=== PATIENT | male | born 1975 | race Caucasian/White ===

== ENCOUNTER 2021-10-01 13:41 | Emergency (ER) | payer OTHER, SELFPAY ==
[2021-10-01 14:13] VITALS: BP 116/71; PULSE 95; RESP 18; TEMP 36.6; O2SAT 98; BMI 18.6
--- NOTE | 2021-10-01 15:42 | CRLHL7_ITS ---
For Patients: As a result of the Cures Act, medical imaging exams and procedure reports are released immediately into your electronic medical record. You may view this report before your referring provider. If you have questions, please contact your health care provider. INDICATION: Fall off ladder 09/23/2021. On tailbone. Significant pain.. TECHNIQUE: CT pelvis without contrast. COMPARISON: None. FINDINGS: Bones: Alignment is normal. There is subtle irregularity along the anterior margin of the S3 vertebral body (4/80) common best viewed on the lateral images likely corresponding to a subtle oblique, but predominately transverse fracture through the S3 vertebral body, nondisplaced. Joints: Unremarkable. Soft tissues: Unremarkable. IMPRESSION: Suspected subtle nondisplaced fracture along the anterior margin of the S3 vertebral body.. Please note that all CT scans at this facility use dose modulation, iterative reconstruction, and/or weight-based dosing when appropriate to reduce radiation dose to as low as reasonably achievable. Dictated by Russ Melendez MD @ 10/01/2021 4:52:55 PM (Electronically Signed)
--- NOTE | 2021-10-01 15:43 | ED.GENADULT ---
HPI - General Adult General Time Seen by Provider: 15:44 Date Seen: 10/01/21 Chief complaint: Hip Injury/Pain Stated complaint: Pelvic injury Time Seen by Provider: 10/01/21 15:33 Source: patient History of Present Illness HPI narrative: Shayy is a 46-year-old male with no past medical history presents emerged department with lower back injury. Patient states he was at work last week on a Wednesday, he was leaning over with 2 hands on a cart with his feet planted, he fell backwards, still holding onto the cart landing on his buttocks. He denies any head injury or loss of consciousness, he denies any other injury, pain is lower lumbar and tailbone area, he denies any urinary or bowel incontinence or retention, he denies any weakness, tingling or numbness of his lower extremities, he has continued to work. Pain is worse with sitting, he has to roll to his side when he is laying or sitting to get up due to the pain. pain is constant, sometimes radiates down his bilateral hip area. No history of any back problems. He has been taking [id number] medications for pain, it has progressively gotten worse, no other concerns at this time. Related Data Allergies Allergy/AdvReac Type Severity Reaction Status Date / Time hydromorphone AdvReac Verified 10/01/21 14:24 Rifampin Allergy Intermediate Uncoded 10/01/21 14:24 Review of Systems Status of ROS: Reports: 10 or more systems reviewed and unremarkable except as noted in History and below Exam Narrative: Exam Narrative: General: No obvious distress, sitting comfortably on his side HEENT: Tympanic membranes within normal limits, extraocular muscles intact, oropharynx clear and moist, pupils equal round reactive to light, extraocular muscles intact Neck: Nontender to palpation, supple, full range of motion Lungs: Clear to auscultation bilaterally Heart: normal sinus rhythm S1-S2 Abdomen: Soft, nontender bowel sounds present Muscle skeletal: Tender to palpation in the lower lumbar L5-S1 and coccyx region, no step-offs or saddle anesthesia, Straight leg raise and crossover at 20? negative, +5 strength lower extremities bilaterally, +2 patellar reflexes bilaterally Neuro: The within normal limits, alert awake and oriented x3, no focal deficits Const: Vital Signs, click to edit/add: Vital Signs - 24 hr 10/01/21 14:13 Temperature 97.9 F Pulse Rate [Pulse Oximeter] 95 Respiratory Rate 18 Blood Pressure [[facility] Upper Arm] 116/71 Pulse Oximetry 98 Course Course Hospital Course: 3:30 p.m.: Vitals are stable, workup will include CT pelvis without IV contrast rule out fracture. No red flags on exam. Patient does not want anything for pain at this time. Differential diagnosis include, life-threatening cauda equina and epidural abscess. Other differential diagnosis include sprain, contusion, nerve root entrapment, radiculopathy, muscle spasm, urolithiasis, lumbar fracture, pyelonephritis as well as all etiologies. The patient denied saddle anesthesia, bowel or bladder incontinence or retention or any lower extremity weakness. Reevaluation(s) Reevaluation #1: CT pelvis without IV contrast showed a subtle nondisplaced fracture along the anterior margin of S3 vertebral body. Patient is feeling better after above care given, plan would be to discharge, written instructions given, he should follow up with a primary care provider over the next 7-10 days, return precautions given. Time: 17:12 Vital Signs Vital signs: Initial Vital Signs Temperature 97.9 F 10/01/21 14:13 Temperature Source Temporal Artery Scan 10/01/21 14:13 Pulse Rate 95 10/01/21 14:13 Pulse Rhythm 10/01/21 14:13 Respiratory Rate 18 10/01/21 14:13 Blood Pressure 116/71 10/01/21 14:13 Blood Pressure Mean 86 10/01/21 14:13 Blood Pressure Position Sitting 10/01/21 14:13 Pulse Oximetry 98 10/01/21 14:13 Oxygen Delivery Method 10/01/21 14:13 Vital Signs Temperature 97.9 F 10/01/21 14:13 Pulse Rate 95 10/01/21 14:13 Respiratory Rate 18 10/01/21 14:13 Blood Pressure 116/71 10/01/21 14:13 Pulse Oximetry 98 10/01/21 14:13 Temperature 97.9 F 10/01/21 14:13 Pulse Rate 95 10/01/21 14:13 Respiratory Rate 18 10/01/21 14:13 Blood Pressure 116/71 10/01/21 14:13 Pulse Oximetry 98 10/01/21 14:13 Discharge Plan Discharge Clinical Impression: Closed sacral fracture Patient Disposition: Home, Self-Care Condition: Improved Instructions: Sacral Fracture (ED) Additional Instructions: Continue with Tylenol and Motrin every 4-6 hours as needed for pain, can apply a cushion doughnut to help with support and pain control during sitting, to follow up with a primary care provider in [place] over the next 7-10 days, return precautions given. Activity Level: Activity as Tolerated Follow Up/Referrals: Gurvinder Lou MD [Referring] - Stand Alone Forms: [employer] Info Instructions
[2021-10-01 17:27] VITALS: BP 156/85; PULSE 88; RESP 16; O2SAT 98
== END 2021-10-01 17:28 | disposition home or self-care (01) ==
PROVIDERS: Emergency Provider Student in an Organized Health Care Education/Training Program
DX: S32.16XA Type 3 fracture of sacrum, initial encounter for closed fracture (principal); W18.30XA Fall on same level, unspecified, initial encounter
CPT/HCPCS: 72192; 99283; 99284

== ENCOUNTER 2021-11-30 11:35 | Emergency (ER) | payer OTHER, SELFPAY ==
[2021-11-30] VITALS (8 sets, daily range): BP systolic 140–173; BP diastolic 39–87; PULSE 98–111; TEMP 36.8; O2SAT 98–100; BMI 18.0
--- NOTE | 2021-11-30 12:07 | CRLHL7_ITS ---
For Patients: As a result of the Century Cures Act, medical imaging exams and procedure reports are released immediately into your electronic medical record. You may view this report before your referring provider. If you have questions, please contact your health care provider. Indication: Chest pain lymphoma Technique: Contrast CT chest Comparison: No comparison Findings: Normal caliber thoracic aorta. Heart size normal. No pericardial effusion. No mediastinal adenopathy. No effusion. No pericardial effusion. Minimal ground-glass opacity in the left lower lobe could represent area of pneumonitis. The lungs are otherwise clear No suspicious bony lesions are seen. Impression: 1. Minimal ground-glass opacity left lower lobe could represent area of pneumonitis. The lungs are otherwise clear. Please note that all CT scans at this facility use dose modulation, iterative reconstruction, and/or weight-based dosing when appropriate to reduce radiation dose to as low as reasonably achievable. Dictated by Nahomi Klein MD @ 11/30/2021 1:50:45 PM (Electronically Signed)
[2021-11-30 12:22] LABS: Lactate Sepsis w/Reflex* 1.5 mmol/L (0.5-1.9)
[2021-11-30] MEDS: 0.9 % SODIUM CHLORIDE 1000 ml 1,000 ML IV ×2 (12:30→13:35)
[2021-11-30 12:31] LABS: Glucose, Point-of-Care* 377 mg/dl (60-115)
[2021-11-30 12:32] LABS: Basophils Percent Auto 0.2 % (0.0-3.0); Eosinophils Percent Auto 0.1 % (0.0-7.0); Hematocrit 42.1 % (37.0-53.0); Hemoglobin* 14.3 gm/dL (13.5-17.5); Immature Granulocytes Abs Auto 0.06 K/uL (0.00-0.30); Lymphocytes Percent Auto 5.1 % (20-44); Mean Corpuscular HGB Conc 34 gm/dL (32-36); Mean Corpuscular Hemoglobin 29 pg (26-34); Mean Corpuscular Volume 86 fL (80-100); Monocytes Percent Auto 8.8 % (0.0-11.0); Neutrophils Percent Auto 85.3 % (42.0-72.0); Platelet Count* 199 K/uL (140-440); RDW Coefficient of Variation % 11.7 % (11.5-15.5); Red Blood Count 4.92 m/uL (4.30-5.90); White Blood Count* 11.75 K/uL (4.50-11.00)
[2021-11-30 12:34] LABS: Slide Review Reflex No
--- NOTE | 2021-11-30 12:38 | ED_ITS ---
HPI - General Adult General Chief complaint: Chest Pain Stated complaint: Shortness of breath fever vomiting Time Seen by Provider: 11/30/21 11:44 History of Present Illness HPI narrative: Ankush is a 46yo male patient with remote history of Burkitt's lymphoma, T[]DM (poorly controlled, not on medications), and poor adherence to medical recommendations due to limited access. He presents to the ED with complaints of chest pain that has been present for a few weeks. In addition, the patient has had a feeling of general malaise for months now. He reports on Wednesday evening the pain in his chest began to worsen. On he was in his usual state of poor health, but worsened overnight. By Wednesday, the patient reports severe symptoms including fever 102.5 T-max, shortness of breath, and nausea with vomiting. During the worst of the symptoms, the patient reports he was hallucinating, witnessed by his who is present at bedside. He was given a home COVID test x2, which were both negative. He has had no other treatments or interventions. His glucoses remain uncontrolled as he is not using any insulin. He denies significant cough, but states when he does cough he has severe left-sided chest pain. He denies personal history of cardiac disease, CAD, or previous MN. the pain radiates to his left shoulder and down his left arm. The pain is worsened with deep inspiration. The other symptoms, nausea vomiting, fever, and shortness of breath have somewhat subsided since their onset 4 days prior. He has used no treatments at home prior to arrival. Related Data Previous Rx's Medication Instructions Recorded azithromycin 500 mg tablet 500 mg PO DAILY 5 days #5 tabs 11/30/21 Allergies Allergy/AdvReac Type Severity Reaction Status Date / Time hydromorphone AdvReac Verified 10/01/21 14:24 Rifampin Allergy Intermediate Uncoded 10/01/21 14:24 Review of Systems Const: Reports: fever, chills, fatigue and malaise ENMT: Denies: throat pain, hoarseness or ear pain Cardio: Reports: chest pain, shortness of breath with exertion and shortness of breath when lying down; Denies: palpitations or swelling of feet/ankles Resp: Reports: shortness of breath and cough (occasional) GI: Reports: nausea and vomiting; Denies: abdominal pain, diarrhea or constipation Neuro: Reports: lack of coordination, dizziness and confusion (during the height of his fever, now resolved); Denies: headache, numbness in extremities or weakness in extremities Psych: Reports: visual hallucinations (now resolved) and auditory hallucinations (now resolved) Endo: Reports: fatigue PFSH PFS Medical History (Updated 11/30/21 @ 14:41 by Sabrina Ng DO) Lymphoma Surgical History (Updated 10/01/21 @ 17:26 by Chrissy Shah RN) History of arthroplasty of right shoulder Social History Smoking Status: Never smoker Do you use any of these nicotine containing products: Smokeless Tobacco Second hand tobacco smoke exposure: No How often do you have a drink containing alcohol: 2-3 times a week How many standard drinks containing alcohol do you have on a typical day: 1 or 2 How often do you have six or more drinks on one occasion: Never AUDIT-C Alcohol total score: 3 Non-prescribed substance use: denies use Exam Const: Vital Signs, click to edit/add: Vital Signs - 24 hr 11/30/21 11:45 11/30/21 11:45 11/30/21 12:00 Temperature 98.2 F Pulse Rate [Left P ulse Oximeter] 109 H 102 H 98 Blood Pressure [Ri ght Upper Arm] 173/39 H 173/39 H 146/84 H Pulse Oximetry 100 100 98 Oxygen Delivery Me thod Room Air Room Air Room Air 11/30/21 12:30 11/30/21 13:00 11/30/21 13:20 Temperature Pulse Rate [Left P ulse Oximeter] 105 H 102 H 108 H Blood Pressure [Ri ght Upper Arm] 144/78 H 150/85 H 164/83 H Pulse Oximetry 99 98 98 Oxygen Delivery Me thod Room Air Room Air Room Air 11/30/21 14:00 11/30/21 14:30 11/30/21 15:30 Temperature Pulse Rate [Left P ulse Oximeter] 101 H 99 111 H Blood Pressure [Ri ght Upper Arm] 140/79 H 147/75 H 159/87 H Pulse Oximetry 98 98 98 Oxygen Delivery Me thod Room Air Room Air Room Air Documenting provider has reviewed patient's vital signs: yes Common normals: no apparent distress, oriented x3 and alert General appearance: cooperative, ill appearing chronically and frail appearing; not in distress Nutritional appearance: thin Orientation/consciousness: Yes awake, Yes oriented to person, Yes oriented to place and Yes oriented to time HENMT: Common normals: normocephalic and head/scalp atraumatic Head and scalp: normocephalic and atraumatic Eye: Common normals: PERRL and EOMs intact bilaterally General eye: normal appearance of both eyes Pupil: PERRL Neck & C-Spine: Common normals: full ROM, no lymphadenopathy and supple Chest: Common normals: inspection of chest normal and palpation of chest normal Chest: tenderness other (left chest, not reproducible with palpation) Resp: Common normals: normal respiratory effort, no retractions, no use of accessory muscles and clear to auscultation bilaterally Effort & inspection: able to speak in complete sentences Auscultation: clear to auscultation bilaterally Cardio: Common normals: regular rate, regular rhythm, S1 normal heart sound, S2 normal heart sound, no gallops, no clicks, no murmurs and peripheral pulses 2+ throughout Rate: regular rate Rhythm: regular rhythm Heart sounds: S1 normal and S2 normal Peripheral pulses: pulses 2+ throughout GI: Common normals: Normal to inspection, nondistended, normoactive bowel sounds present, soft to palpation and non-tender Palpation: soft Back & Pelvis: Common normals: thoracic and lumbar spine normal to inspection General back: no erythema, no warmth, no ecchymosis and no tenderness Extremity: Common normals: normal to inspection, full ROM, no clubbing, cyanosis or edema and no calf tenderness Neuro: Edwin Coma Scale: document GCS findings Edwin coma scale eye opening: Spontaneous (4) Orla coma scale verbal response: Orientated (5) Edwin coma scale motor response: Obey commands (6) Orla coma scale total score: 15 Common normals: oriented x3 Sensorium/orientation: awake, alert, oriented to person, oriented to place and oriented to time Motor exam: strength 5/5 throughout Psych: Common normals: mental status grossly normal, thought process normal and speech normal Attitude: calm Activity/motor behavior: appropriate eye contact Speech: normal speech Thought process: normal thought process Thought content: normal thought content Attention/concentration: attention grossly intact Memory/cognition: memory grossly intact Insight: fair Judgement: fair Skin: Common normals: no rashes or lesions noted General skin exam: no rashes or lesions noted Course Course Hospital Course: Ankush presented to the emergency department with complaints of weeks of left- sided chest pain. The patient also reports he has had months of failing to thrive and general malaise. He presents today due to an acute worsening of symptoms for the last 4 days. During that time the patient had fever (T-max 102.5?), nausea and vomiting. In addition his left-sided chest pain worsened, and now is painful with deep inspiration. He has been noncompliant with his recommendations regarding his diabetes. He has taken no insulin for several months. He presents for further evaluation and workup. Imaging and labs are performed. EKG was performed and read by me as noted. The patient was given 15 mg of IV Toradol to assist with pain and discomfort in his left chest. He is also given 2 L of fluids due to elevated glucose as noted. Reevaluation(s) Reevaluation #1: Patient reports improvement with Toradol. He continues to feel weak, but he reports improvement in symptoms. Time: 13:50 Reevaluation #2: Patient continues to improve with results discussed as they have returned. Plan for recheck of glucose to ensure improvement prior to discharge. Time: 14:31 Vital Signs Vital signs: Initial Vital Signs Temperature 98.2 F 11/30/21 11:45 Temperature Source Temporal Artery Scan 11/30/21 11:45 Pulse Rate 109 H 11/30/21 11:45 Blood Pressure 173/39 H 11/30/21 11:45 Blood Pressure Mean 83 11/30/21 11:45 Blood Pressure Position Supine 11/30/21 11:45 Pulse Oximetry 100 11/30/21 11:45 Oxygen Delivery Method 11/30/21 11:45 Vital Signs Temperature 98.2 F 11/30/21 11:45 Pulse Rate 109 H 11/30/21 11:45 Blood Pressure 173/39 H 11/30/21 11:45 Pulse Oximetry 100 11/30/21 11:45 Oxygen Delivery Method 11/30/21 11:45 Temperature 98.2 F 11/30/21 11:45 Pulse Rate 111 H 11/30/21 15:30 Blood Pressure 159/87 H 11/30/21 15:30 Pulse Oximetry 98 11/30/21 15:30 Oxygen Delivery Method 11/30/21 15:30 Medical Decision Making Lab Data Labs: Lab Results 11/30/21 11/30/21 11/30/21 Range/Units 11:54 12:10 12:10 WBC 11.75 H (4.50-11.00) K/uL RBC 4.92 (4.30-5.90) m/uL Hgb 14.3 (13.5-17.5) gm/dL Hct 42.1 (37.0-53.0) % MCV 86 (80-100) fL MCH 29 (26-34) pg MCHC 34 (32-36) gm/dL RDW Coeff of Severiano 11.7 (11.5-15.5) % Plt Count 199 (140-440) K/uL Neut % (Auto) 85.3 H (42.0-72.0) % Lymph % (Auto) 5.1 L (20-44) % [place] % (Auto) 8.8 (0.0-11.0) % Eos % (Auto) 0.1 (0.0-7.0) % Baso % (Auto) 0.2 (0.0-3.0) % Neut # (Auto) 10.00 H (1.7-7.0) K/uL Lymph # (Auto) 0.60 L (0.90-2.90) K/uL [place] # (Auto) 1.00 H (0.00-0.90) K/UL Eos # (Auto) 0.00 (0.00-0.50) K/uL Baso # (Auto) 0.00 (0.00-0.30) K/uL Abs Immat Gran (auto) 0.06 (0.00-0.30) K/uL Sodium 132 L (135-149) mmol/L Potassium 4.3 (3.6-5.1) mmol/L Chloride 93 L (96-114) mmol/L Carbon Dioxide 22 (20-32) mmol/L BUN 19 (5-24) mg/dL Creatinine 1.1 (0.5-1.5) mg/dL Estimated Creat Clear 76.17 Estimated GFR 84 ml/min Glucose 377 H* (60-115) mg/dL Venous Lactic Acid (Serial Order) Calcium 8.9 (8.4-10.6) mg/dL Total Bilirubin 0.8 (0.1-1.5) mg/dL AST 30 (12-35) U/L ALT 27 (4-50) U/L Alkaline Phosphatase 159 H (40-150) U/L Total Creatine Kinase 56 (54-186) U/L CK/CKMB % Calc Troponin I < 0.01 L (0.01-0.04) ng/mL Total Protein 8.3 (6.0-8.3) g/dL Albumin 4.6 (3.3-5.0) g/dL SARS-CoV-2 (PCR) Negative SARS-CoV-2 (Negative) Influenza Type A (PCR) Negative PCR FLU A (Negative) Influenza Type B (PCR) Negative PCR FLU B (Negative) POC Glucose (60-115) mg/dl 11/30/21 11/30/21 11/30/21 Range/Units 12:10 12:10 12:10 WBC (4.50-11.00) K/uL RBC (4.30-5.90) m/uL Hgb (13.5-17.5) gm/dL Hct (37.0-53.0) % MCV (80-100) fL MCH (26-34) pg MCHC (32-36) gm/dL RDW Coeff of Severiano (11.5-15.5) % Plt Count (140-440) K/uL Neut % (Auto) (42.0-72.0) % Lymph % (Auto) (20-44) % [place] % (Auto) (0.0-11.0) % Eos % (Auto) (0.0-7.0) % Baso % (Auto) (0.0-3.0) % Neut # (Auto) (1.7-7.0) K/uL Lymph # (Auto) (0.90-2.90) K/uL [place] # (Auto) (0.00-0.90) K/UL Eos # (Auto) (0.00-0.50) K/uL Baso # (Auto) (0.00-0.30) K/uL Abs Immat Gran (auto) (0.00-0.30) K/uL Sodium (135-149) mmol/L Potassium (3.6-5.1) mmol/L Chloride (96-114) mmol/L Carbon Dioxide (20-32) mmol/L BUN (5-24) mg/dL Creatinine (0.5-1.5) mg/dL Estimated Creat Clear Estimated GFR ml/min Glucose (60-115) mg/dL Venous Lactic Acid (Serial Order) Calcium (8.4-10.6) mg/dL Total Bilirubin (0.1-1.5) mg/dL AST (12-35) U/L ALT (4-50) U/L Alkaline Phosphatase (40-150) U/L Total Creatine Kinase (54-186) U/L CK/CKMB % Calc Cancelled Troponin I (0.01-0.04) ng/mL Total Protein (6.0-8.3) g/dL Albumin (3.3-5.0) g/dL SARS-CoV-2 (PCR) (Negative) Influenza Type A (PCR) (Negative) Influenza Type B (PCR) (Negative) POC Glucose 377 H* (60-115) mg/dl Imaging Data CT scan - chest: Attestation: I have reviewed the pertinent imaging results. Radiologist's impression: Impression: 1. Minimal ground-glass opacity left lower lobe could represent area of pneumonitis. The lungs are otherwise clear. Discharge Plan Discharge Clinical Impression: Pneumonitis Type 1 diabetes mellitus, uncontrolled Qualifiers: Glycemic state: with hyperglycemia Qualified Code(s): E10.65 - Type 1 diabetes mellitus with hyperglycemia Patient Disposition: Home, Self-Care Condition: Improved Instructions: Managing Diabetes During Sick Days (ED) Additional Instructions: Thank you for choosing [facility]. We plan to treat with antibiotics to cover for the pneumonitis noted on CT. You should aggressively treat symptoms with: rest, increased fluids, and Ibuprofen and Tylenol as needed. You should eat and drink to ensure adequate intake. Consider restarting your insulin, as poor control of your diabetes will worsen your symptoms and chronic diseases. The patient is asked to return if developing respiratory or GI distress, inability to eat or drink, decreased urine output, or other new/worsening symptoms develop. Additional discussion regarding the course of the illness, as well as helpful treatments, including use of a vaporizer/humidifier, steamed bathroom, or cool outdoor air. Arrange follow up visit if worsening or no improvement in symptoms in 1-2 weeks. The patient is asked to return if develops warning signs including fever >100.4 not responsive to medication, respiratory distress, lethargy, failure to hydrate with PO intake, or decreased urine output. Your care today was on an emergency basis and is not intended to be a substitute for on-going care with your primary physician. I recommend calling primary care for follow-up in the next 5-7 days for follow-up as needed and to review any labs, testing, or imaging you have had in the Emergency Department. If new or worsening symptoms develop or you have any concerns in the meantime, please call your primary care clinic or return to the ER for re-evaluation. Activity Level: Activity as Tolerated Discharge Diet: Diabetic Diet Detail: Push fluids while you are feeling ill to ensure you are getting a minimum of 2.4L in a day. Prescriptions: New azithromycin 500 mg tablet 500 mg PO DAILY 5 Days Qty: 5 0RF Follow Up/Referrals: Provider,Not a Local [Primary Care Provider] - Stand Alone Forms: [employer] Info Instructions
[2021-11-30 12:44] LABS: PCR FLU A Negative PCR FLU A (Negative); PCR FLU B Negative PCR FLU B (Negative)
[2021-11-30 12:45] LABS: Albumin* 4.6 g/dL (3.3-5.0); Chloride* 93 mmol/L (96-114); Potassium* 4.3 mmol/L (3.6-5.1); Sodium* 132 mmol/L (135-149)
[2021-11-30 12:47] LABS: Bilirubin Total* 0.8 mg/dL (0.1-1.5); Creatinine* 1.1 mg/dL (0.5-1.5); Est. Creatinine Clearance* 76.17; Estimated Glomerular Filt Rate 84 ml/min
[2021-11-30 12:48] LABS: Alanine Aminotransferase* 27 U/L (4-50); Alkaline Phosphatase* 159 U/L (40-150); Aspartate Amino Transferase* 30 U/L (12-35); Blood Urea Nitrogen* 19 mg/dL (5-24); Carbon Dioxide* 22 mmol/L (20-32); Creatine Kinase* 56 U/L (54-186); Total Protein* 8.3 g/dL (6.0-8.3)
[2021-11-30 12:49] LABS: Calcium* 8.9 mg/dL (8.4-10.6)
[2021-11-30 12:50] LABS: SARS PCR* Negative SARS-CoV-2 (Negative)
[2021-11-30 12:59] LABS: Glucose* 377 mg/dL (60-115)
[2021-11-30 13:00] LABS: Troponin I* < 0.01 ng/mL (0.01-0.04)
[2021-11-30] MEDS: KETOROLAC 15 MG/ML inj IVP (13:15)
[2021-11-30 14:17] LABS: Lactate Sepsis 2 Hour 0.7 mmol/L (0.5-1.9)
--- NOTE | 2021-11-30 15:19 | ED.NURSE ---
BG rechecked, now 271. notified.
== END 2021-11-30 15:40 | disposition home or self-care (01) ==
PROVIDERS: Emergency Provider Family Medicine
DX: J18.9 Pneumonia, unspecified organism (principal); E10.65 Type 1 diabetes mellitus with hyperglycemia
CPT/HCPCS: 36415; 71260; 80053; 82550; 82553; 82947; 84484; 85025; 87631; 93005; 96374; 99284; 99285; J1885; J7030; Q9967

== ENCOUNTER 2021-12-08 09:33 | Inpatient (IN) | payer OTHER, SELFPAY ==
[2021-12-08] VITALS (11 sets, daily range): BP systolic 122–157; BP diastolic 66–88; PULSE 82–111; RESP 14–20; TEMP 36.8–37.4; O2SAT 92–99; BMI 18.0; BMI 18.2
--- NOTE | 2021-12-08 10:16 | CRLHL7_ITS ---
For Patients: As a result of the 21st Century Cures Act, medical imaging exams and procedure reports are released immediately into your electronic medical record. You may view this report before your referring provider. If you have questions, please contact your health care provider. INDICATION: LEFT UPPER CHEST PAIN AND SWELLING RECET PNEUOMIA HX OF LYMPOMA COMPARISON: 11/30/2021 TECHNIQUE: CT volumetric acquisition was performed of the thorax during intravenous infusion of 95 cc Isovue 370 nonionic intravenous contrast. Please note that all CT scans at this facility use dose modulation, iterative reconstruction, and/or weight-based dosing when appropriate to reduce radiation dose to as low as reasonably achievable. FINDINGS: There is no pulmonary embolism. No aortic dissection. There is soft tissue swelling involving the left anterior chest wall deep to the pectoralis musculature with associated subcutaneous gas. Underline pleural thickening noted at the anterior left hemithorax along with thickening of the anterior interlobular septa. There may be a subtle nondisplaced fracture of the left anterior 4th rib. No pneumothorax. Trace left pleural effusion. No pericardial effusion. Interval development focal opacity within the right lower lobe measuring 2.9 cm. Other focal airspace densities within the left lower lobe measuring up to 1 cm. Smaller focal ground-glass densities elsewhere within the left lower lobe and right lower lobe. No intrathoracic adenopathy. Visualized thyroid normal. Thoracic vertebral bodies are normal. Upper abdomen unremarkable. IMPRESSION: No evidence of pulmonary thromboembolism. Left anterior subcutaneous soft tissue swelling, subpectoral fluid and subcutaneous emphysema. Adjacent left anterior hemithorax pleural thickening and thickening of the interlobular septa. Possible adjacent nondisplaced fracture of the left anterior 4th rib. These findings may be secondary to trauma, infection or malignancy. New patchy areas of ground-glass opacification bilaterally consistent with infiltrates. More consolidative area within the right lower lobe. Please note that all CT scans at this facility use dose modulation, iterative reconstruction, and/or weight-based dosing when appropriate to reduce radiation dose to as low as reasonably achievable. Dictated by Jose Philip MD @ 12/08/2021 11:36:38 AM (Electronically Signed)
[2021-12-08] MEDS: 0.9 % SODIUM CHLORIDE 1000 ml 1,000 ML IV (10:46)
[2021-12-08] MEDS: KETOROLAC 15 MG/ML inj IVP (10:47)
[2021-12-08 10:54] LABS: Basophils Percent Auto 0.1 % (0.0-3.0); Eosinophils Percent Auto 0.3 % (0.0-7.0); Hemoglobin* 11.8 gm/dL (13.5-17.5); Immature Granulocytes Abs Auto 0.08 K/uL (0.00-0.30); Lymphocytes Percent Auto 6.8 % (20-44); Mean Corpuscular HGB Conc 33 gm/dL (32-36); Mean Corpuscular Hemoglobin 29 pg (26-34); Mean Corpuscular Volume 89 fL (80-100); Monocytes Percent Auto 6.3 % (0.0-11.0); Neutrophils Percent Auto 85.9 % (42.0-72.0); Platelet Count* 489 K/uL (140-440); RDW Coefficient of Variation % 12.2 % (11.5-15.5); Red Blood Count 4.05 m/uL (4.30-5.90); White Blood Count* 14.33 K/uL (4.50-11.00)
[2021-12-08 10:55] LABS: Slide Review Reflex No
[2021-12-08 10:57] LABS: Lactate Sepsis w/Reflex* 0.9 mmol/L (0.5-1.9)
--- NOTE | 2021-12-08 11:00 | PC.NURSE ---
pt in imaging, lab called for second BC, they will come in 15min after CT
--- NOTE | 2021-12-08 11:04 | ED_ITS ---
HPI - General Adult General Chief complaint: Chest Pain Stated complaint: Pneumonitis getting worse Time Seen by Provider: 12/08/21 10:10 History of Present Illness HPI narrative: 46-year-old man presenting to the emergency department with complaint of increasing left upper chest pain. A searing pain actually goes straight through to his back as well. Underlying history of poorly controlled diabetes and Burkitt's lymphoma (history of surgery to remove large mass of the abdomen coin ciding with appendicitis and subsequent chemotherapy now in remission since about 2007), diagnosed about a week ago through this department with suspected pneumonitis in the left lower lung on CT imaging. White count was little bit elevated at that time. Three days ago has noted some swelling in the left upper chest which has rapidly expanded. He has not noted inflammation here. Pain seems to stop at the midsternum. It is pleuritic in nature. Any movement hurts particularly raising his left arm, twisting. He has not had any fevers. It does not sound as though he is really short of breath. Generally poor health. 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 Subsequently then when I inquire, denies history of pneumothorax. Was seen here after a fall in the end of September and diagnosed with a nondisplaced S3 fracture on pelvic CT. Abdomen was not fully visualized at that time. He initially states that he did not have pain in his chest at that time. Though with later questioning it appears that there has been some discomfort to some degree for many weeks in this left upper chest/sternal area. Has continued to lose weight over the last few years perhaps as much as 100 lb. Eats anything he wants does not really gain weight to his 's frustration apparently. Often just does not feel like eating. Does have some Lantus available in the fridge but does not really use it and has not been able to afford regular treatment regardless. Otherwise only takes ibuprofen. Does think that it would be time to return to the administrative services assistant for a clearer diagnosis he thinks of his diabetes. Related Data Home Medications Medication Instructions Recorded Confirmed melatonin 10 mg capsule 10 mg PO HS PRN 12/08/21 12/08/21 Previous Rx's Medication Instructions Recorded acetaminophen 500 mg tablet 1,000 mg PO TID PRN #100 tabs 12/10/21 (Acetaminophen Extra Strength) amoxicillin 875 mg-potassium 1 tab PO BID #10 tabs 12/10/21 clavulanate 125 mg tablet ibuprofen 200 mg tablet (Advil) 600 mg PO Q6H PRN #100 tabs 12/10/21 insulin aspart U-100 100 unit/mL 6 unit (0.06 mL) subcut TIDWM #15 12/10/21 (3 mL) subcutaneous pen (Novolog mL Flexpen U-100 Insulin aspart) insulin glargine 100 unit/mL (3 15 unit (0.15 mL) subcut QPM #15 mL 12/10/21 mL) subcutaneous pen (Lantus Solostar U-100 Insulin) oxycodone 5 mg capsule 5 mg PO Q6H PRN pain #20 caps 12/10/21 Allergies Allergy/AdvReac Type Severity Reaction Status Date / Time rifampin Allergy Intermediate Verified 12/08/21 17:39 hydromorphone AdvReac Verified 10/01/21 14:24 Review of Systems Status of ROS: Reports: 10 or more systems reviewed and unremarkable except as noted in History and below [facility] Medical History (Updated 12/10/21 @ 16:58 by Satya Liao MD) Burkitt's lymphoma Chewing tobacco nicotine dependence Elevated liver enzymes Methicillin susceptible Staphylococcus aureus septicemia Type 1 diabetes mellitus Surgical History History of appendectomy History of arthroscopy of shoulder History of laparotomy History of placement of ear tubes Family History Father Diabetes Social History Narrative: Lives with his , Li. They have 1 son together. Each have a child from a previous relationship. 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 He chews tobacco. He drinks socially 2 to 3 times a week. 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 Highest level of school completed/degree received: decline to answer Smoking Status: Never smoker Do you use any of these nicotine containing products: Smokeless Tobacco Nicotine containing products detail: Chews tobacco daily. Second hand tobacco smoke exposure: No How often do you have a drink containing alcohol: 2-3 times a week How many standard drinks containing alcohol do you have on a typical day: 1 or 2 How often do you have six or more drinks on one occasion: Never AUDIT-C Alcohol total score: 3 Non-prescribed substance use: denies use service: No Exam Narrative: Exam Narrative: Rather thin, nearly cachectic. Of good energy. I do not smell ketones. Dentition in poor repair. I do not see inflammatory changes. Sticky oropharyngeal mucosa Speaking easily. Breathing easily actually not splinting. Lungs appear to be clear. Back quite thin, he is claims in pain when I palpate the left upper back, periscapular area. On the anterior chest wall there is a moderate swelling over the left upper chest. Quite firm. I do not feel well demarcated edges. No inflammatory changes. Very tender to palpation. Abdomen is flat soft and nontender. Lower extremities are quite thin, no edema. Well perfused peripherally. Skin without apparent rash Const: Vital Signs, click to edit/add: Vital Signs - 24 hr 12/08/21 09:50 12/08/21 12:10 12/08/21 12:30 Temperature 98.3 F Pulse Rate [Pulse Oximeter] 105 H 85 82 Respiratory Rate 16 18 15 Blood Pressure [Ri ght Upper Arm] 122/66 157/86 H 149/83 H Pulse Oximetry 98 98 98 Oxygen Delivery Me thod Room Air Room Air Room Air 12/08/21 13:00 12/08/21 13:30 12/08/21 14:00 Temperature Pulse Rate [Pulse Oximeter] 85 87 87 Respiratory Rate 18 14 14 Blood Pressure [Ri ght Upper Arm] 140/86 H 141/79 H 146/80 H Pulse Oximetry 99 99 99 Oxygen Delivery Me thod Room Air Room Air Room Air Documenting provider has reviewed patient's vital signs: yes Course Course Hospital Course: Patient admitted to the hospital with ongoing coughing, left chest pain, poorly controlled diabetes. 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 He had received a Zithromax in the week prior to this admission. Here he was continued on Pipracil and tazobactam. He had clinical improvement with no fever or hypoxia. Cough is improved. He is found to have a left 4th rib fracture with associated hematoma and small subcutaneous emphysema. He was resumed on his insulin and blood sugars improved though I have not yet normalized. Reevaluation(s) Reevaluation #1: Initiated on normal saline fluid resuscitation and given ketorolac as he thinks that that worked well before. Consultations Consultation #1: I did speak with our general surgeon on-call given results in chest CT. Nothing concerning specifically about the fracture. Expressed further concern regarding uncontrolled diabetes and effects from that and other abnormal lab values. Consultation #2: Discussed treatment and care with our hospitalist anticipating admission. Thankfully accepting. Vital Signs Vital signs: Initial Vital Signs Temperature 98.3 F 12/08/21 09:50 Temperature Source Temporal Artery Scan 12/08/21 09:50 Pulse Rate 105 H 12/08/21 09:50 Pulse Rhythm 12/08/21 09:50 Respiratory Rate 16 12/08/21 09:50 Blood Pressure 122/66 12/08/21 09:50 Blood Pressure Mean 84 12/08/21 09:50 Blood Pressure Position Sitting 12/08/21 09:50 Pulse Oximetry 98 12/08/21 09:50 Oxygen Delivery Method 12/08/21 09:50 Vital Signs Temperature 98.3 F 12/08/21 09:50 Pulse Rate 105 H 12/08/21 09:50 Respiratory Rate 16 12/08/21 09:50 Blood Pressure 122/66 12/08/21 09:50 Pulse Oximetry 98 12/08/21 09:50 Oxygen Delivery Method 12/08/21 09:50 Temperature 97.9 F 12/10/21 11:00 Pulse Rate 83 12/10/21 11:00 Respiratory Rate 20 12/10/21 11:00 Blood Pressure 132/77 12/10/21 11:00 Pulse Oximetry 98 12/10/21 11:00 Oxygen Delivery Method 12/10/21 11:00 Medical Decision Making MDM Narrative Medical decision making narrative: Complicated constellation of issues here. Question of pathologic fracture and FX of uncontrolled blood sugars. I do not perceive Mr. Smith to be in DKA. Bicarb 24. Further labs are pending. However will be given 10 units of regular insulin. Has received 2 L normal saline. Sepsis? He is not tachycardic on re- evaluation. IMPRESSION: No evidence of pulmonary thromboembolism. Left anterior subcutaneous soft tissue swelling, subpectoral fluid and subcutaneous emphysema. Adjacent left anterior hemithorax pleural thickening and thickening of the interlobular septa. Possible adjacent nondisplaced fracture of the left anterior 4th rib. These findings may be secondary to trauma, infection or malignancy. New patchy areas of ground-glass opacification bilaterally consistent with infiltrates. More consolidative area within the right lower lobe. Have further imaged the abdomen with residual contrast and looks to be unremarkable. Given challenges with diabetic management, apparently worsening pneumonia, I do think admission would help here. He has been vitally well during time in the emergency department. Is given Rocephin. Medical Records Medical records reviewed: Yes I reviewed the patient's medical records Lab Data Lab results reviewed: Yes I reviewed the patient's lab results Labs: Lab Results 12/08/21 12/08/21 12/08/21 Range/Units 10:17 10:22 10:40 WBC 14.33 H (4.50-11.00) K/uL RBC 4.05 L (4.30-5.90) m/uL Hgb 11.8 L (13.5-17.5) gm/dL Hct 36.0 L (37.0-53.0) % MCV 89 (80-100) fL MCH 29 (26-34) pg MCHC 33 (32-36) gm/dL RDW Coeff of Severiano 12.2 (11.5-15.5) % Plt Count 489 H (140-440) K/uL Neut % (Auto) 85.9 H (42.0-72.0) % Lymph % (Auto) 6.8 L (20-44) % Woodson % (Auto) 6.3 (0.0-11.0) % Eos % (Auto) 0.3 (0.0-7.0) % Baso % (Auto) 0.1 (0.0-3.0) % Neut # (Auto) 12.30 H (1.7-7.0) K/uL Lymph # (Auto) 1.00 (0.90-2.90) K/uL Woodson # (Auto) 0.90 (0.00-0.90) K/UL Eos # (Auto) 0.00 (0.00-0.50) K/uL Baso # (Auto) 0.00 (0.00-0.30) K/uL Abs Immat Gran (auto) 0.08 (0.00-0.30) K/uL D-Dimer Quant (PE/DVT) (0.00-0.50) ug/ml VBG pH (7.32-7.43) VBG pCO2 (40-50) mmHG VBG pO2 (25-47) mmHG VBG HCO3 (21-28) mmol/L Sodium (135-149) mmol/L Potassium (3.6-5.1) mmol/L Chloride (96-114) mmol/L Carbon Dioxide (20-32) mmol/L BUN (5-24) mg/dL Creatinine (0.5-1.5) mg/dL Estimated Creat Clear Estimated GFR ml/min Glucose (60-115) mg/dL Hemoglobin A1c (0-5.6) % Venous Lactic Acid (Serial Order) Calcium (8.4-10.6) mg/dL Total Bilirubin (0.1-1.5) mg/dL Direct Bilirubin (0.0-0.5) mg/dL AST (12-35) U/L ALT (4-50) U/L Alkaline Phosphatase (40-150) U/L Troponin I (0.01-0.04) ng/mL C-Reactive Protein (0.5-1.0) mg/dL NT-Pro-B Natriuret Pep (0-125) PG/mL Total Protein (6.0-8.3) g/dL Albumin (3.3-5.0) g/dL Procalcitonin (<0.50) ng/mL SARS-CoV-2 (PCR) Negative SARS-CoV-2 (Negative) 12/08/21 12/08/21 12/08/21 Range/Units 10:40 10:40 10:40 WBC (4.50-11.00) K/uL RBC (4.30-5.90) m/uL Hgb (13.5-17.5) gm/dL Hct (37.0-53.0) % MCV (80-100) fL MCH (26-34) pg MCHC (32-36) gm/dL RDW Coeff of Severiano (11.5-15.5) % Plt Count (140-440) K/uL Neut % (Auto) (42.0-72.0) % Lymph % (Auto) (20-44) % Woodson % (Auto) (0.0-11.0) % Eos % (Auto) (0.0-7.0) % Baso % (Auto) (0.0-3.0) % Neut # (Auto) (1.7-7.0) K/uL Lymph # (Auto) (0.90-2.90) K/uL Woodson # (Auto) (0.00-0.90) K/UL Eos # (Auto) (0.00-0.50) K/uL Baso # (Auto) (0.00-0.30) K/uL Abs Immat Gran (auto) (0.00-0.30) K/uL D-Dimer Quant (PE/DVT) 2.84 H (0.00-0.50) ug/ml VBG pH 7.376 (7.32-7.43) VBG pCO2 47 (40-50) mmHG VBG pO2 23.2 L (25-47) mmHG VBG HCO3 27 (21-28) mmol/L Sodium 133 L (135-149) mmol/L Potassium 5.3 H (3.6-5.1) mmol/L Chloride 95 L (96-114) mmol/L Carbon Dioxide 24 (20-32) mmol/L BUN 20 (5-24) mg/dL Creatinine 1.1 (0.5-1.5) mg/dL Estimated Creat Clear 76.17 Estimated GFR 84 ml/min Glucose 463 H* (60-115) mg/dL Hemoglobin A1c (0-5.6) % Venous Lactic Acid (Serial Order) Calcium 9.3 (8.4-10.6) mg/dL Total Bilirubin 0.8 (0.1-1.5) mg/dL Direct Bilirubin 0.7 H (0.0-0.5) mg/dL AST 172 H (12-35) U/L ALT 154 H (4-50) U/L Alkaline Phosphatase 771 H (40-150) U/L Troponin I < 0.01 L (0.01-0.04) ng/mL C-Reactive Protein 8.6 H (0.5-1.0) mg/dL NT-Pro-B Natriuret Pep 392 H (0-125) PG/mL Total Protein 7.7 (6.0-8.3) g/dL Albumin 3.7 (3.3-5.0) g/dL Procalcitonin 0.37 (<0.50) ng/mL SARS-CoV-2 (PCR) (Negative) 12/08/21 Range/Units 10:40 WBC (4.50-11.00) K/uL RBC (4.30-5.90) m/uL Hgb (13.5-17.5) gm/dL Hct (37.0-53.0) % MCV (80-100) fL MCH (26-34) pg MCHC (32-36) gm/dL RDW Coeff of Severiano (11.5-15.5) % Plt Count (140-440) K/uL Neut % (Auto) (42.0-72.0) % Lymph % (Auto) (20-44) % Woodson % (Auto) (0.0-11.0) % Eos % (Auto) (0.0-7.0) % Baso % (Auto) (0.0-3.0) % Neut # (Auto) (1.7-7.0) K/uL Lymph # (Auto) (0.90-2.90) K/uL Woodson # (Auto) (0.00-0.90) K/UL Eos # (Auto) (0.00-0.50) K/uL Baso # (Auto) (0.00-0.30) K/uL Abs Immat Gran (auto) (0.00-0.30) K/uL D-Dimer Quant (PE/DVT) (0.00-0.50) ug/ml VBG pH (7.32-7.43) VBG pCO2 (40-50) mmHG VBG pO2 (25-47) mmHG VBG HCO3 (21-28) mmol/L Sodium (135-149) mmol/L Potassium (3.6-5.1) mmol/L Chloride (96-114) mmol/L Carbon Dioxide (20-32) mmol/L BUN (5-24) mg/dL Creatinine (0.5-1.5) mg/dL Estimated Creat Clear Estimated GFR ml/min Glucose (60-115) mg/dL Hemoglobin A1c 12.01 H (0-5.6) % Venous Lactic Acid (Serial Order) Calcium (8.4-10.6) mg/dL Total Bilirubin (0.1-1.5) mg/dL Direct Bilirubin (0.0-0.5) mg/dL AST (12-35) U/L ALT (4-50) U/L Alkaline Phosphatase (40-150) U/L Troponin I (0.01-0.04) ng/mL C-Reactive Protein (0.5-1.0) mg/dL NT-Pro-B Natriuret Pep (0-125) PG/mL Total Protein (6.0-8.3) g/dL Albumin (3.3-5.0) g/dL Procalcitonin (<0.50) ng/mL SARS-CoV-2 (PCR) (Negative) Discharge Plan Discharge Clinical Impression: Type 1 diabetes mellitus, uncontrolled, Pneumonia Patient Disposition: Admitted As Inpatient Condition: Improved Activity Level: Activity as Tolerated Discharge Diet: Diabetic
[2021-12-08 11:14] LABS: Albumin* 3.7 g/dL (3.3-5.0); Chloride* 95 mmol/L (96-114); Potassium* 5.3 mmol/L (3.6-5.1); Sodium* 133 mmol/L (135-149)
[2021-12-08 11:16] LABS: Creatinine* 1.1 mg/dL (0.5-1.5); Est. Creatinine Clearance* 76.17; Estimated Glomerular Filt Rate 84 ml/min
[2021-12-08 11:17] LABS: Alanine Aminotransferase* 154 U/L (4-50); Alkaline Phosphatase* 771 U/L (40-150); Aspartate Amino Transferase* 172 U/L (12-35); Bilirubin Direct* 0.7 mg/dL (0.0-0.5); Bilirubin Total* 0.8 mg/dL (0.1-1.5); Blood Urea Nitrogen* 20 mg/dL (5-24); Calcium* 9.3 mg/dL (8.4-10.6); Carbon Dioxide* 24 mmol/L (20-32); Total Protein* 7.7 g/dL (6.0-8.3)
[2021-12-08 11:18] LABS: D Dimer Quantitative* 2.84 ug/ml (0.00-0.50)
[2021-12-08 11:20] LABS: C Reactive Protein* 8.6 mg/dL (0.5-1.0)
[2021-12-08 11:26] LABS: NT Pro B Type NatriureticPept* 392 PG/mL (0-125)
[2021-12-08 11:35] LABS: Glucose* 463 mg/dL (60-115); Troponin I* < 0.01 ng/mL (0.01-0.04)
[2021-12-08 12:03] LABS: SARS PCR* Negative SARS-CoV-2 (Negative)
--- NOTE | 2021-12-08 13:50 | CRLHL7_ITS ---
For Patients: As a result of the Cures Act, medical imaging exams and procedure reports are released immediately into your electronic medical record. You may view this report before your referring provider. If you have questions, please contact your health care provider. INDICATION: h/o Nadya lymphoma, high transaminases and alk phos TECHNIQUE: CT abdomen and pelvis without contrast. Coronal and sagittal reformats were generated. COMPARISON: CT of the chest from 12/08/2021 and 11/30/2021. FINDINGS: Lower chest: Unremarkable. Liver: Unremarkable. Gallbladder and bile ducts: Unremarkable. No stones or inflammation. No biliary dilation. Spleen: Unremarkable. Pancreas: Unremarkable. Adrenal glands: Unremarkable. No nodules. Kidneys and Ureters: Contrast within the renal collecting systems and ureters from recent contrast enhanced chest CT. Lymph Nodes and Retroperitoneum: Unremarkable. Vasculature: Vascular calcifications. GI tract: Unremarkable. Normal in caliber. An area of high attenuation adjacent to the cecum is probably from prior appendectomy. Peritoneum/Abdominal Wall: Unremarkable. No mass or infiltration. No free air or free fluid. Pelvic Viscera: Unremarkable. Bladder: Well distended with high density contrast material. No wall thickening. Bones: Unremarkable for age. IMPRESSION: No significant CT abnormality in the abdomen or pelvis or findings to explain the cause of the patient`s symptoms. Please note that all CT scans at this facility use dose modulation, iterative reconstruction, and/or weight-based dosing when appropriate to reduce radiation dose to as low as reasonably achievable. Dictated by Lambert Bowser MD @ 12/08/2021 3:00:27 PM (Electronically Signed)
[2021-12-08] MEDS: cefTRIAXone 1 GM in 0.9 % SODIUM CHLORIDE Mini-bag 100 ML IVPB (14:05)
--- NOTE | 2021-12-08 14:38 | W.PC.EDHO ---
Primary Language: Preferred Language: Orientation Status: [x] Alert & Oriented [] Slight Confusion [] Known Dx Dementia Transfers By: [x] Assist of 1 [] Assist of 2 [] Lift Active Medications Discontinued Medications Generic Name Dose Route Start Last Admin Trade Name Frandy PRN Reason Stop Dose Admin Sodium Chloride 1,000 mls @ 1,000 mls/hr 12/08/21 10:16 12/08/21 10:46 0.9 % Sodium Chloride 1000 Ml IV 12/08/21 11:15 1,000 mls/hr .Q1H ONE Administration Insulin Human Regular 10 unit 12/08/21 13:52 12/08/21 14:02 Insulin Regular 100 Unit/Ml Inj IVP 12/08/21 13:53 10 unit ONCE ONE Administration Ketorolac Tromethamine 15 mg 12/08/21 10:16 12/08/21 10:47 Ketorolac 15 Mg/Ml Inj IVP 12/08/21 10:17 15 mg ONCE ONE Administration Description of Symptoms ED Triage Present Problem Patient was here last week and dx with pneumonitis Description . He was given ABX and went home. He is back today with c/o burning feeling in chest and back. Feels lightheaded with certain movements. He has some swelling in chest. ED Triage Date of Onset of 12/04/21 Symptoms Female History Patient Pain Pain Description [Chest] Burning,Dull, Achy Pain Radiation Location [Chest back,shoulder ] Pain Intensity [Chest] 6 Pain Intensity 4 Pain Intensity 5 Pain Intensity 5 Pain Scale Used [Chest] Numeric (1 - 10) Pain Scale Used Numeric (1 - 10) Pain Scale Used Numeric (1 - 10) Pain Scale Used Numeric (1 - 10) IV Insertion/Site Date of IV Line Insertion [ 12/08/21 Right Antecubital] Oxygen Administration Pulse Oximetry 99 Pulse Oximetry 98 Pulse Oximetry 98 Pulse Oximetry 98 Oxygen Delivery Method Room Air Oxygen Delivery Method Room Air Oxygen Delivery Method Room Air Oxygen Delivery Method Room Air
[2021-12-08 14:43] LABS: HCO3 VBG 27 mmol/L (21-28); PCO2 VBG 47 mmHG (40-50); PO2 VBG 23.2 mmHG (25-47); pH VBG 7.376 (7.32-7.43)
--- NOTE | 2021-12-08 14:59 | PC.NURSE ---
report given to Kari, pt to 256
--- NOTE | 2021-12-08 16:04 | PM.IMHP1 ---
Hospitalist- H&P: HPI History of Present Illness Date Seen: 12/08/21 Chief complaint: Pneumonitis getting worse Narrative: ADMISSION HISTORY AND PHYSICAL - HOSPITALIST Chief Complaint: I'm still coughing and now my chest hurts and there's bulge. HPI: 46-year-old with poorly controlled type 1 diabetes and history of Burkitt lymphoma presents with acute left chest wall pain and deformity. He was seen in the ER approximately 8 days ago and diagnosed with a left lower lobe infiltrate. He was given a Z-Nehemias and sent home. He sent over the last few days he has continued to cough and feel poorly. He does not think his fever returned however his energy has been poor. He said at times he has cough quite hard. He stated over the last 24 hours he has felt this new pain in his left side of his chest and felt he should be evaluated. He was diagnosed with Burkitt's lymphoma in 2003 when he presented with appendicitis. His appendectomy was converted to a exploratory laparotomy and a large mass was removed from his abdomen. Was treated with chemotherapy and has not had any recurrences. In 2010 he was diagnosed with type 1 diabetes has had issues with the quintana of insulin has not been able to be adherent to any insulin regimen nor does he check his blood sugars. In the ED he was found to be mildly tachycardic but not hypotensive or hypoxic. He did have an elevated D-dimer which led to a chest CT. We were able to compare the chest CT to 1 week ago when he was evaluated. On his scan today we see a progression of his pneumonia to bilateral lower lobes. He also has what appears to be a broken left 4th anterior rib with subcu emphysema and sub pack hematoma. I believe this is what correlates with his new chest pain. Further investigation shows a new LFT elevation and electrolyte disturbances with hyperglycemia. Blood cultures were drawn. He was given 1 g of ceftriaxone in his abdomen and pelvis were scanned. His abdomen and pelvis were reassuring. Hospital medicine was asked to evaluate his worsening pneumonia, failure of outpatient therapy, new LFT elevation, hyperglycemia with electrolyte disturbance. I've updated the PFSH, medications and allergies in the Expanse tabs. INVESTIGATIONS: LABS/MICRO/ECG/IMAGING Blood pressure 139/88, presentation his blood pressure was 122/66. Pulse was 105., he was afebrile. Pulse increased to 110. Leukocytosis has increased since the 11.8-14.3 He is more anemic than he was on the 14.3 down to 11.8 Hematocrit is down as well 42.1 down to 36 Platelet count seems more reactive 199 up to 489 Predominantly neutrophils D-dimer elevated to 2.8 VBG shows a normal pH, normal pCO2, normal bicarb Mildly hyponatremic at 133 Mildly hyperkalemic at 5.3 Normal renal function with a GFR of 80+ Glucose 463 A1c pending Procalcitonin pending Liver enzymes are now elevated AST is 172, ALT 154. Alk-phos 771 This is much increased since 11/30 where his AST was only 30, ALT was 27, alk-phos is only mildly elevated at a little at 159 Bilirubin normal C reactive protein mildly elevated at 8.6 Troponin undetectable BNP 392 with no comparison. Normal albumin, Normal protein SARs negative x2 since the , negative flu on the Blood cultures drawn and pending x2 Chest CT on the (sent home from ED on a Zpack) Minimal ground-glass opacity left lower lobe could represent area of pneumonitis. The lungs are otherwise clear. Chest CT today Left anterior subcutaneous soft tissue swelling, subpectoral fluid and subcutaneous emphysema. Adjacent left anterior hemithorax pleural thickening and thickening of the interlobular septa. Possible adjacent nondisplaced fracture of the left anterior 4th rib. These findings may be secondary to trauma, infection or malignancy. New patchy areas of ground-glass opacification bilaterally consistent with infiltrates. More consolidative area within the right lower lobe. No significant CT abnormality in the abdomen or pelvis or findings to explain the cause of the patient`s symptoms. REVIEW OF SYSTEMS: 12-point ROS completed with patient and negative unless otherwise stated in HPI or below. PHYSICAL EXAM: CODE STATUS: FULL CODE CONSTITUTIONAL: Conversive, good historian. Chatty. A/O. Knows setting and context. Thin appearing. VITAL SIGNS: see record. HEENT: Normocephalic, atraumatic. PERRL, EOMI, conjunctivae pink, no scleral icterus. Ears and nose externally normal. Pharynx normal. NECK: No JVD. No carotid bruit, no thyromegaly, no adenopathy. CHEST: Clear to auscultation bilaterally, no obvious wheeze. CHEST WALL: demarcated area of firm swelling to the left pectoral - anterior to 4th rib. not hot/red. not flocculent. tender to palpation. HEART: S1 and S2 normal. No harsh murmurs. no edema. MUSCULOSKELETAL: Right big toe: plantar service: dried blood; old appearing laceration with oozing noted. no flocculence. non-tender. NEURO: Cranial nerves intact. Grossly intact. No asymmetric findings. SKIN: No rashes, petechiae, concerning changes PSYCHIATRIC: Euthymic. ADMIT TO MEDSURG: FLOOR CARE DVT: SCDs (ambulatory and hemoblobin dropped) GI: PO intake, 1 dose of PPI Time spent: 70 minutes examining patient, conferring with family and patient, care staff, developing care plan [facility] Medical History Burkitt's lymphoma Chewing tobacco nicotine dependence Methicillin susceptible Staphylococcus aureus septicemia Type 1 diabetes mellitus Surgical History History of appendectomy History of arthroscopy of shoulder History of laparotomy History of placement of ear tubes Family History Father Diabetes Social History Narrative: Lives with his , Li. They have 1 son together. Each have a child from a previous relationship. 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 He chews tobacco. He drinks socially 2 to 3 times a week. 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 Smoking Status: Never smoker Do you use any of these nicotine containing products: Smokeless Tobacco Nicotine containing products detail: Chews tobacco daily. Second hand tobacco smoke exposure: No How often do you have a drink containing alcohol: 2-3 times a week How many standard drinks containing alcohol do you have on a typical day: 1 or 2 How often do you have six or more drinks on one occasion: Never AUDIT-C Alcohol total score: 3 Non-prescribed substance use: denies use service: No Meds Home Medications and Allergies Home Medications Medication Instructions Recorded Confirmed Type acetaminophen 500 mg tablet 1,000 mg PO Q6H PRN 12/08/21 12/08/21 History (Acetaminophen Extra Strength) ibuprofen 200 mg tablet (Advil) 800 mg PO Q6H PRN 12/08/21 12/08/21 History melatonin 10 mg capsule 10 mg PO HS PRN 12/08/21 12/08/21 History Allergies Allergy/AdvReac Type Severity Reaction Status Date / Time hydromorphone AdvReac Verified 10/01/21 14:24 Rifampin Allergy Intermediate Uncoded 10/01/21 14:24 Exam Const: Vital Signs, click to edit/add: Vital Signs - 24 hr 12/08/21 09:50 12/08/21 12:10 12/08/21 12:30 Temperature 98.3 F Pulse Rate [Pulse Oximeter] 105 H 85 82 Respiratory Rate 16 18 15 Blood Pressure [Le ft Arm] Blood Pressure [Ri ght Upper Arm] 122/66 157/86 H 149/83 H Pulse Oximetry 98 98 98 Oxygen Delivery Me thod Room Air Room Air Room Air 12/08/21 13:00 12/08/21 15:16 12/08/21 13:30 Temperature 98.2 F Pulse Rate [Pulse Oximeter] 85 110 H 87 Respiratory Rate 18 20 14 Blood Pressure [Le ft Arm] 139/88 Blood Pressure [Ri ght Upper Arm] 140/86 H 141/79 H Pulse Oximetry 99 98 99 Oxygen Delivery Me thod Room Air Room Air Room Air 12/08/21 14:00 Temperature Pulse Rate [Pulse Oximeter] 87 Respiratory Rate 14 Blood Pressure [Le ft Arm] Blood Pressure [Ri ght Upper Arm] 146/80 H Pulse Oximetry 99 Oxygen Delivery Me thod Room Air Hospitalist - H&P: Result Labs Labs: Short CBC 12/08/21 Range/Units 10:40 WBC 14.33 H (4.50-11.00) K/uL Hgb 11.8 L (13.5-17.5) gm/dL Hct 36.0 L (37.0-53.0) % Plt Count 489 H (140-440) K/uL BMP 12/08/21 10:40 Sodium 133 L Potassium 5.3 H Chloride 95 L Carbon Dioxide 24 BUN 20 Creatinine 1.1 Glucose 463 H* Calcium 9.3 Cardiac Enzymes 12/08/21 Range/Units 10:40 Troponin I < 0.01 L (0.01-0.04) ng/mL Liver Function 12/08/21 Range/Units 10:40 Total Bilirubin 0.8 (0.1-1.5) mg/dL Direct Bilirubin 0.7 H (0.0-0.5) mg/dL AST 172 H (12-35) U/L ALT 154 H (4-50) U/L Alkaline Phosphatase 771 H (40-150) U/L Albumin 3.7 (3.3-5.0) g/dL Assessment and Plan Assessment and plan (1) Bilateral pneumonia: Problem comment: Bilateral. Progression since the when left lower lobe infiltrate was noted by CT. SARS-CoV-2 negative x2. Influenza negative. Not hypoxic. Increasing leukocytosis, electrolyte abnormalities and hyperglycemia. New LFT elevation. Cultures drawn and pending. I am starting Zosyn and azithromycin. Symptomatic support. I suspect that he has coughed and broke that left 4th rib. He is immunocompromised secondary to poorly controlled type 1 diabetes. At least overnight observation. I will run LR at 125 mL an hour. Status: Acute (2) Type 1 diabetes mellitus: Problem comment: Diagnosed in 2010. A1C currently 12.1 Insulin dependent. However he says he cannot afford insulin. Basal, nutritional, correctional insulin ordered. Bedside glucose monitoring q.i.d. - I fee his education and insight seem to be adequate however, connecting him with the resources necessary for medication adherence will be necessary. Social work consult placed. Status: Inactive (3) Diabetic foot infection: Problem comment: Previous sepsis. Right big toe. I will consult Podiatry. Status: Acute (4) Type 1 diabetes mellitus, uncontrolled: Problem comment: Insulin regimen restarted. Social work to be consulted. A1c 12.1. Status: Acute (5) Rib fracture: Problem comment: And concerned about the elevation in his alk-phos. With his history of malignancy, high index of suspicion must be maintained for other processes. Status: Acute (6) Sacral fracture, closed: Problem comment: Previous fall at work in September. Status: Acute (7) Chewing tobacco nicotine dependence: Problem comment: Noted. Will offer nicotine replacement if needed. Status: Acute (8) Burkitt's lymphoma: Problem comment: 2003. Resected intra-abdominally. Status post chemotherapy. Status: Acute Plan 46-year-old with bilateral pneumonia and poorly controlled type 1 diabetes presenting with hyperglycemia, foot infection without DKA. He is hyponatremic, hyperkalemic, new elevation in LFTs. Progression of symptoms and imaging of pneumonia from left lower quadrant bilateral infiltrates. Hemodynamically and respiratory valerio he is stable. New edema and hematoma in the left pectoralis region likely related to rib fracture and subcu emphysema. Pain management, IV antibiotics, social work consult, all necessary.
[2021-12-08 16:31] LABS: Hemoglobin A1C* 12.01 % (0-5.6)
[2021-12-08 16:45] LABS: Procalcitonin* 0.37 ng/mL (<0.50)
[2021-12-08] MEDS: LACTATED RINGERS 1000 ML 1,000 ML 125 ML IV (17:55)
[2021-12-08] MEDS: PIPERACILLIN/TAZOBACTAM 3.375 GM in 0.9 % SODIUM CHLORIDE Mini-bag 100 ML IVPB ×2 (17:55→23:34)
[2021-12-08] MEDS: PANTOPRAZOLE SODIUM 40 MG INJ IVP (17:55)
[2021-12-08] MEDS: ACETAMINOPHEN 325 MG TABLET PO ×2 (18:20→23:47)
[2021-12-08] MEDS: OXYCODONE 5 MG TABLET PO ×2 (18:20→22:35)
[2021-12-08] MEDS: AZITHROMYCIN 500 MG in 0.9 % SODIUM CHLORIDE 250 ml 250 ML 255 MG IVPB (18:37)
[2021-12-08 18:50] LABS: Appearance Urine Clear (Clear); Bilirubin Urine Negative (Negative); Blood Urine Trace-lysed (Negative); Color Urine Yellow (Yellow); Glucose Urine 3+ (Negative); Ketones Urine 3+ (Negative); Leukocyte Esterase Urine Negative (Negative); Nitrite Urine Negative (Negative); Protein Urine Trace (Negative); pH Urine 5.5 (5.0-8.5)
--- NOTE | 2021-12-08 18:53 | PC.NURSE ---
PATIENT HAS HEALING DIABETIC ULCER TO BOTTOM OF RIGHT GREAT TOES THAT HE STATES HE HAS HAD FOR A COUPLE YEARS. PATIENT STATED HE PICKED THE SKIN ON HIS TOE RECENTLY AND AREA OPENED UP. APPEARS TO BE A BLEEDING LACERATION APPEARANCE WITH SURROUNDING EXCORIATED SKIN. DR. LIMA VISUALIZED. TOE CLEANSED WITH VASHE AND COVERED WITH MEPILEX.
[2021-12-08 19:09] LABS: WBC Urine 0-2 (0-5)
[2021-12-08] MEDS: 0.9 % SODIUM CHLORIDE 250 ml IV (23:34)
[2021-12-08] MEDS: LORazepam 0.5 MG TABLET PO (23:47)
[2021-12-09] VITALS (10 sets, daily range): BP systolic 123–145; BP diastolic 71–79; PULSE 83–100; RESP 16–20; TEMP 36.9–37.3; O2SAT 97–99
[2021-12-09] MEDS: OXYCODONE 5 MG TABLET PO ×3 (03:42→23:06)
[2021-12-09] MEDS: LACTATED RINGERS 1000 ML 1,000 ML 125 ML IV (03:42)
[2021-12-09] MEDS: KETOROLAC 30 MG/ML inj IVP ×2 (03:49→11:51)
[2021-12-09] MEDS: PIPERACILLIN/TAZOBACTAM 3.375 GM in 0.9 % SODIUM CHLORIDE Mini-bag 100 ML IVPB ×3 (05:56→17:36)
--- NOTE | 2021-12-09 06:02 | PC.NURSE ---
[id number]: Patient talkative and cooperative with care. Independent in room. Rates pain 4-7/10 in the L. chest/shoulder/elbow. PRN Toradol x1, Oxycodone x2, and Tylenol x1 for relief. Declined ice. Mepilex to R. great toe C/D/I.
[2021-12-09 06:43] LABS: HCO3 VBG 28 mmol/L (21-28); Ionized Calcium* 1.16 mmol/L (1.11-1.30); PCO2 VBG 45 mmHG (40-50); pH VBG 7.407 (7.32-7.43)
[2021-12-09 06:55] LABS: Basophils Percent Auto 0.2 % (0.0-3.0); Hematocrit 32.2 % (37.0-53.0); Hemoglobin* 10.6 gm/dL (13.5-17.5); Immature Granulocytes Abs Auto 0.06 K/uL (0.00-0.30); Lymphocytes Percent Auto 9.3 % (20-44); Mean Corpuscular HGB Conc 33 gm/dL (32-36); Mean Corpuscular Hemoglobin 29 pg (26-34); Mean Corpuscular Volume 89 fL (80-100); Monocytes Percent Auto 7.6 % (0.0-11.0); Neutrophils Percent Auto 81.4 % (42.0-72.0); Platelet Count* 452 K/uL (140-440); RDW Coefficient of Variation % 12.3 % (11.5-15.5); Red Blood Count 3.64 m/uL (4.30-5.90); White Blood Count* 11.81 K/uL (4.50-11.00)
[2021-12-09 07:29] LABS: Chloride* 101 mmol/L (96-114)
[2021-12-09 07:30] LABS: Slide Review Reflex No; Sodium* 133 mmol/L (135-149)
[2021-12-09 07:32] LABS: Creatinine* 0.7 mg/dL (0.5-1.5); Estimated Glomerular Filt Rate 116 ml/min
[2021-12-09 07:33] LABS: Alanine Aminotransferase* 128 U/L (4-50); Alkaline Phosphatase* 593 U/L (40-150); Aspartate Amino Transferase* 140 U/L (12-35); Blood Urea Nitrogen* 12 mg/dL (5-24); Calcium* 8.6 mg/dL (8.4-10.6); Carbon Dioxide* 26 mmol/L (20-32); Gamma Glutamyl Transpeptidase* 637 U/L (8-55); Glucose* 232 mg/dL (60-115); Total Protein* 6.8 g/dL (6.0-8.3)
[2021-12-09 07:36] LABS: C Reactive Protein* 7.6 mg/dL (0.5-1.0)
[2021-12-09 07:39] LABS: Potassium* 4.1 mmol/L (3.6-5.1)
[2021-12-09 07:42] LABS: Magnesium* 2.1 mg/dL (1.5-2.6); NT Pro B Type NatriureticPept* 388 PG/mL (0-125)
[2021-12-09 07:49] LABS: Troponin I* < 0.01 ng/mL (0.01-0.04)
[2021-12-09 07:50] LABS: Procalcitonin* 0.27 ng/mL (<0.50)
[2021-12-09 08:21] LABS: Iron* 42 ug/dL (49-181)
[2021-12-09 08:30] LABS: Percent Iron Saturation 16 % (20-50); Total Iron Binding Capacity 261 ug/dL (261-462)
--- NOTE | 2021-12-09 11:02 | NUTR.NU ---
RDN with nutrition screen related to diabetic diet and low BMI. Patient agreed to visit with RDN. Reported he has been doing well at home regarding diabetes management and carbohydrate counting. He declined diet education at this time. Current weight 141 lbs; BMI is underweight at 18.2 kg/m2. Patient reports his weight has been stable the last 1-2 years (around 140 lbs). He is not concerned about his weight at this time and declined scheduled snacks. RDN informed patient he can ask staff for snacks throughout the day. Patient had no questions or concerns at this time. RDN will continue to monitor and follow-up prn.
--- NOTE | 2021-12-09 11:12 | P.IMPN_ITS ---
Progress Note: A&P Assessment and plan (1) Bilateral pneumonia: Problem details: Bilateral. Progression since the when left lower lobe infiltrate was noted by CT. SARS-CoV-2 negative x2. Influenza negative. Not hypoxic. Increasing leukocytosis, electrolyte abnormalities and hyperglycemia. New LFT elevation. Cultures drawn and pending. I am starting Zosyn and azithromycin. Symptomatic support. I suspect that he has coughed and broke that left 4th rib. He is immunocompromised secondary to poorly controlled type 1 diabetes. Status: Acute (2) Rib fracture: Problem details: And concerned about the elevation in his alk-phos. With his history of malignancy, high index of suspicion must be maintained for other processes. Status: Acute (3) Burkitt's lymphoma: Problem details: 2003. Resected intra-abdominally. Status post chemotherapy. Status: Acute (4) Sacral fracture, closed: Problem details: Previous fall at work in September. Status: Acute (5) Chewing tobacco nicotine dependence: Problem details: Noted. Will offer nicotine replacement if needed. Status: Acute (6) Diabetic foot infection: Problem details: Previous sepsis. Right big toe. I will consult Podiatry. Status: Acute (7) Type 1 diabetes mellitus, uncontrolled: Problem details: Insulin regimen restarted. Social work to be consulted. A1c 12.1. Status: Acute Plan Plan for 12/09 1) PNA; continue zosyn + azithromycin; decrease IVF MIV 2) Type I DM; increase levimir to 13 units, novolog to 6 units TID WM 3) Transaminitis, LFTS (AST, ALT, ALk phos improving); will check hepatitis serologies, RUQ US; trend LFTs 4) Diabetic foot ulcer of right great toe; on zosyn; will obtain xray right toe; podiatry was consulted; continue local wound care and dressings Time Spent With Patient Total time spent: 30 minutes Subjective Date Seen: 12/09/21 Interval history: Endorses Fatigue SOB slightly improved from yesterday Endorses intermittent pleuritic chest pain denies abdominal pain Exam Narrative: Exam Narrative: GeN: NAD HEENT: NCAT EOMI MMM; poor oral dentition CV: RRR normal s1 s2 Lungs: CTAB Abd: Soft, nt, nd MSK: Right great toe superficial ulceration; no visible bone Const: Vital Signs, click to edit/add: Vital Signs - 24 hr 12/08/21 12:10 12/08/21 12:30 12/08/21 13:00 Temperature Pulse Rate Pulse Rate [Pulse Oximeter] 85 82 85 Respiratory Rate 18 15 18 Blood Pressure [Le ft Arm] Blood Pressure [Ri ght Upper Arm] 157/86 H 149/83 H 140/86 H Pulse Oximetry 98 98 99 Oxygen Delivery Me thod Room Air Room Air Room Air 12/08/21 15:16 12/08/21 13:30 12/08/21 14:00 Temperature 98.2 F Pulse Rate Pulse Rate [Pulse Oximeter] 110 H 87 87 Respiratory Rate 20 14 14 Blood Pressure [Le ft Arm] 139/88 Blood Pressure [Ri ght Upper Arm] 141/79 H 146/80 H Pulse Oximetry 98 99 99 Oxygen Delivery Me thod Room Air Room Air Room Air 12/08/21 17:25 12/08/21 17:25 12/08/21 17:00 Temperature 98.2 F Pulse Rate 111 H Pulse Rate [Pulse Oximeter] 110 H Respiratory Rate 20 Blood Pressure [Le ft Arm] 139/88 Blood Pressure [Ri ght Upper Arm] Pulse Oximetry 95 95 Oxygen Delivery Me thod Room Air Room Air 12/08/21 17:00 12/08/21 19:00 12/08/21 23:00 Temperature 98.8 F 99.3 F Pulse Rate Pulse Rate [Pulse Oximeter] 103 H 92 Respiratory Rate 20 18 Blood Pressure [Le ft Arm] 128/73 134/77 Blood Pressure [Ri ght Upper Arm] Pulse Oximetry 96 96 92 Oxygen Delivery Me thod Room Air Room Air Room Air 12/08/21 23:00 12/09/21 03:00 12/09/21 07:09 Temperature 98.6 F Pulse Rate 91 87 Pulse Rate [Pulse Oximeter] 83 Respiratory Rate 16 Blood Pressure [Le ft Arm] 129/73 Blood Pressure [Ri ght Upper Arm] Pulse Oximetry 97 Oxygen Delivery Me thod Room Air 12/09/21 08:15 12/09/21 08:15 Temperature 98.5 F Pulse Rate Pulse Rate [Pulse Oximeter] 87 87 Respiratory Rate 16 18 Blood Pressure [Le ft Arm] 135/73 Blood Pressure [Ri ght Upper Arm] Pulse Oximetry 97 Oxygen Delivery Me thod Room Air Labs Labs: Laboratory Results - last 24 hr 0912/08/21 12/08/21 10:17 10:22 10:40 WBC RBC Hgb Hct MCV MCH MCHC RDW Coeff of Severiano Plt Count Neut % (Auto) Lymph % (Auto) [place] % (Auto) Eos % (Auto) Baso % (Auto) Neut # (Auto) Lymph # (Auto) [place] # (Auto) Eos # (Auto) Baso # (Auto) Abs Immat Gran (auto) D-Dimer Quant (PE/DVT) 2.84 H VBG pH VBG pCO2 VBG pO2 VBG HCO3 Sodium Potassium Chloride Carbon Dioxide BUN Creatinine Estimated Creat Clear Estimated GFR Glucose Hemoglobin A1c Venous Lactic Acid (Serial Order) Calcium Ionized Calcium Perla Magnesium Iron TIBC % Saturation Total Bilirubin Direct Bilirubin GGT AST ALT Alkaline Phosphatase Troponin I C-Reactive Protein NT-Pro-B Natriuret Pep Total Protein Albumin Procalcitonin TSH Urine Color Urine Appearance Urine pH Ur Specific [place] Urine Protein Urine Glucose (UA) Urine Ketones Urine Blood Urine Nitrite Urine Bilirubin Urine Urobilinogen Ur Leukocyte Esterase Urine RBC Urine WBC Ur Squamous Epith Cells Urine Bacteria SARS-CoV-2 (PCR) Negative SARS-CoV-2 12/08/21 12/08/21 12/08/21 10:40 10:40 10:40 WBC RBC Hgb Hct MCV MCH MCHC RDW Coeff of Severiano Plt Count Neut % (Auto) Lymph % (Auto) [place] % (Auto) Eos % (Auto) Baso % (Auto) Neut # (Auto) Lymph # (Auto) [place] # (Auto) Eos # (Auto) Baso # (Auto) Abs Immat Gran (auto) D-Dimer Quant (PE/DVT) VBG pH 7.376 VBG pCO2 47 VBG pO2 23.2 L VBG HCO3 27 Sodium 133 L Potassium 5.3 H Chloride 95 L Carbon Dioxide 24 BUN 20 Creatinine 1.1 Estimated Creat Clear 76.17 Estimated GFR 84 Glucose 463 H* Hemoglobin A1c 12.01 H Venous Lactic Acid (Serial Order) Calcium 9.3 Ionized Calcium Perla Magnesium Iron TIBC % Saturation Total Bilirubin 0.8 Direct Bilirubin 0.7 H GGT AST 172 H ALT 154 H Alkaline Phosphatase 771 H Troponin I < 0.01 L C-Reactive Protein 8.6 H NT-Pro-B Natriuret Pep 392 H Total Protein 7.7 Albumin 3.7 Procalcitonin 0.37 TSH Urine Color Urine Appearance Urine pH Ur Specific [place] Urine Protein Urine Glucose (UA) Urine Ketones Urine Blood Urine Nitrite Urine Bilirubin Urine Urobilinogen Ur Leukocyte Esterase Urine RBC Urine WBC Ur Squamous Epith Cells Urine Bacteria SARS-CoV-2 (PCR) 12/08/21 12/09/21 12/09/21 18:43 06:15 06:15 WBC 11.81 H RBC 3.64 L Hgb 10.6 L Hct 32.2 L MCV 89 MCH 29 MCHC 33 RDW Coeff of Severiano 12.3 Plt Count 452 H Neut % (Auto) 81.4 H Lymph % (Auto) 9.3 L [place] % (Auto) 7.6 Eos % (Auto) 1.0 Baso % (Auto) 0.2 Neut # (Auto) 9.60 H Lymph # (Auto) 1.10 [place] # (Auto) 0.90 Eos # (Auto) 0.10 Baso # (Auto) 0.00 Abs Immat Gran (auto) 0.06 D-Dimer Quant (PE/DVT) VBG pH VBG pCO2 VBG pO2 VBG HCO3 Sodium 133 L Potassium 4.1 Chloride 101 Carbon Dioxide 26 BUN 12 Creatinine 0.7 Estimated Creat Clear 120.90 Estimated GFR 116 Glucose 232 H Hemoglobin A1c Venous Lactic Acid (Serial Order) Calcium 8.6 Ionized Calcium Perla Magnesium 2.1 Iron TIBC % Saturation Total Bilirubin 1.0 Direct Bilirubin GGT 637 H AST 140 H ALT 128 H Alkaline Phosphatase 593 H Troponin I < 0.01 L C-Reactive Protein 7.6 H NT-Pro-B Natriuret Pep 388 H Total Protein 6.8 Albumin 3.0 L Procalcitonin 0.27 TSH Urine Color Yellow Urine Appearance Clear Urine pH 5.5 Ur Specific [place] 1.010 Urine Protein Trace A Urine Glucose (UA) 3+ A Urine Ketones 3+ A Urine Blood Trace-lysed A Urine Nitrite Negative Urine Bilirubin Negative Urine Urobilinogen 1.0 Ur Leukocyte Esterase Negative Urine RBC 2-5 A Urine WBC 0-2 Ur Squamous Epith Cells None Urine Bacteria None SARS-CoV-2 (PCR) 12/09/21 12/09/21 12/09/21 06:15 06:15 06:15 WBC RBC Hgb Hct MCV MCH MCHC RDW Coeff of Severiano Plt Count Neut % (Auto) Lymph % (Auto) [place] % (Auto) Eos % (Auto) Baso % (Auto) Neut # (Auto) Lymph # (Auto) [place] # (Auto) Eos # (Auto) Baso # (Auto) Abs Immat Gran (auto) D-Dimer Quant (PE/DVT) VBG pH 7.407 VBG pCO2 45 VBG pO2 114.0 H VBG HCO3 28 Sodium Potassium Chloride Carbon Dioxide BUN Creatinine Estimated Creat Clear Estimated GFR Glucose Hemoglobin A1c Venous Lactic Acid (Serial Order) Calcium Ionized Calcium Perla 1.16 Magnesium Iron 42 L TIBC 261 % Saturation 16 L Total Bilirubin Direct Bilirubin GGT AST ALT Alkaline Phosphatase Troponin I C-Reactive Protein NT-Pro-B Natriuret Pep Total Protein Albumin Procalcitonin TSH 2.650 Urine Color Urine Appearance Urine pH Ur Specific [place] Urine Protein Urine Glucose (UA) Urine Ketones Urine Blood Urine Nitrite Urine Bilirubin Urine Urobilinogen Ur Leukocyte Esterase Urine RBC Urine WBC Ur Squamous Epith Cells Urine Bacteria SARS-CoV-2 (PCR)
--- NOTE | 2021-12-09 11:50 | CRLHL7_ITS ---
For Patients: As a result of the Century Cures Act, medical imaging exams and procedure reports are released immediately into your electronic medical record. You may view this report before your referring provider. If you have questions, please contact your health care provider. Indication: Diabetic foot ulcer Technique: Three views Comparison: Right great toe 05/17/2019 Findings: Overlying gauze. Mild soft tissue swelling. Slight smooth concavity at the plantar base distal phalanx great toe. There does appear to be some sclerosis along the base suggesting a more chronic process although if there is high clinical suspicion MRI of the toe would have improved specificity. Dictated by Theodore Cadena MD @ 12/09/2021 1:12:08 PM (Electronically Signed)
--- NOTE | 2021-12-09 16:29 | PC.SOCIAL ---
Met with pt in room. Discussed his current insurance plan and how it doesn't cover the medication he needs for diabetes. Provided written information for [facility]. Discussed the [email or web address] that could also be a resource for some medications. Provided pt with a list of low cost dental clinics to obtain dental services. No other information is needed at this time. Informed pt that social work department is available if he has any other questions.
--- NOTE | 2021-12-09 16:30 | CRLHL7_ITS ---
For Patients: As a result of the Century Cures Act, medical imaging exams and procedure reports are released immediately into your electronic medical record. You may view this report before your referring provider. If you have questions, please contact your health care provider. INDICATION: Abnormal LFTs. TECHNIQUE: Ultrasound abdomen limited. Sonographic images of the right upper quadrant were obtained using hickman-scale and color Doppler images. COMPARISON: CT abdomen and pelvis 12/08/2021. FINDINGS: Liver: Normal in size and echotexture. No suspicious masses. No intrahepatic biliary ductal dilatation. Main portal vein is patent. Focal irregularity in the right portal vein, nonspecific may reflect small calcification seen on prior CT abdomen and pelvis (series 2, image 34 on prior study). Gallbladder: No stones or sludge. Apparent gallbladder wall thickening, likely accentuated by decompressed state. No significant pericholecystic fluid. Negative sonographic Chung`s sign. Common bile duct: 4 mm. Pancreas: Unremarkable. Right kidney: Normal in size. Normal echotexture and cortex. No suspicious masses, stones, or hydronephrosis. Vasculature: Proximal abdominal aorta and IVC are unremarkable. IMPRESSION: 1. Focal irregularity in the right portal vein, nonspecific may reflect small calcification seen on prior CT abdomen and pelvis (series 2, image 34 on prior study). 2. Otherwise unremarkable right upper quadrant ultrasound. Dictated by Jerry Pritchett MD @ 12/09/2021 3:38:53 PM (Electronically Signed)
[2021-12-09] MEDS: LACTATED RINGERS 1000 ML 1,000 ML 75 ML IV (17:36)
--- NOTE | 2021-12-09 17:45 | PM.PODCN1 ---
[facility] - Podiatry Data of Consult Time Seen by Provider: 17:45 Date Seen: 12/09/21 Patient: Other Consult date: 12/09/21 Requesting physician: Sri Larsen MD Primary care provider: Not a Local Provider Consult Narrative Reason for consult: Diabetic toe ulcer Narrative: Ankush Smith is a 46 year old male with recurrent right great toe ulceration. Ankush states he has been treating the toe daily since his hospitalization 2 years ago for sepsis stemming from an ulcer on the same toe. he states he recently pulled some loose skin he shouldn't have causing and opening in the toe and bleeding. he states there was some callus over the area but no open wound prior to this. He does not recall any breakdown since the hospitalization. he has been working without issue in steel toed boots which he modifies with insoles and pads the toe daily. cc:: CC: Sri Larsen MD Review of Systems Cardio: Reports: chest pain [facility] Medical History Burkitt's lymphoma Chewing tobacco nicotine dependence Methicillin susceptible Staphylococcus aureus septicemia Type 1 diabetes mellitus Surgical History History of appendectomy History of arthroscopy of shoulder History of laparotomy History of placement of ear tubes Family History Father Diabetes Social History Narrative: Lives with his , Li. They have 1 son together. Each have a child from a previous relationship. 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 He chews tobacco. He drinks socially 2 to 3 times a week. 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 Highest level of school completed/degree received: decline to answer Smoking Status: Never smoker Do you use any of these nicotine containing products: Smokeless Tobacco Nicotine containing products detail: Chews tobacco daily. Second hand tobacco smoke exposure: No How often do you have a drink containing alcohol: 2-3 times a week How many standard drinks containing alcohol do you have on a typical day: 1 or 2 How often do you have six or more drinks on one occasion: Never AUDIT-C Alcohol total score: 3 Non-prescribed substance use: denies use service: No Exam Narrative: Exam Narrative: Right foot exam: General: no distress Vascular: palpable pedal pulses. DP and PT 2/4. normal CFT all digits. Neuro: diminished sensation to light touch to the level of the digits. Derm: open ulceration to the plantar IPJ of the right hallux. measures 4mm x 10mm. exposed subcutaneous tissue. no sign of infection. no drainage. no exposed bone. does not probe, track or undermine. no edema o rerythema. Msk: normal muscle strength. no gross deformity. decreased max DF of the 1st MPJ. decreased ankle joint DF. Const: Vital Signs, click to edit/add: Vital Signs - 24 hr 12/08/21 19:00 12/08/21 23:00 12/08/21 23:00 Temperature 98.8 F 99.3 F Pulse Rate 91 Pulse Rate [Pulse Oximeter] 103 H 92 Respiratory Rate 20 18 Blood Pressure [Le ft Arm] 128/73 134/77 Pulse Oximetry 96 92 Oxygen Delivery Me thod Room Air Room Air 12/09/21 03:00 12/09/21 07:09 12/09/21 08:15 Temperature 98.6 F Pulse Rate 87 Pulse Rate [Pulse Oximeter] 83 87 Respiratory Rate 16 16 Blood Pressure [Le ft Arm] 129/73 Pulse Oximetry 97 Oxygen Delivery Me thod Room Air 12/09/21 08:15 12/09/21 12:00 12/09/21 15:20 Temperature 98.5 F 99 F Pulse Rate Pulse Rate [Pulse Oximeter] 87 100 100 Respiratory Rate 18 18 18 Blood Pressure [Le ft Arm] 135/73 134/71 Pulse Oximetry 97 98 Oxygen Delivery Me thod Room Air Room Air 12/09/21 15:33 12/09/21 16:02 Temperature 98.8 F Pulse Rate 94 Pulse Rate [Pulse Oximeter] 89 Respiratory Rate 18 Blood Pressure [Le ft Arm] 132/74 Pulse Oximetry 99 Oxygen Delivery Me thod Room Air Common normals: no apparent distress and oriented x3 General appearance: cooperative Neuro: Common normals: oriented x3 Assessment and Plan Assessment and plan (1) 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 Ulceration is quite superficial and appearance does coincide with patient's story of pulling off a piece of skin. no sharp debridement needed today. I would continue with mepilex border dressing changed every other day. WBAT. No additional antibiotics needed for the toe. Had long discussion on better care of his diabetes to ensure healing of the ulcer. Follow up in 2 weeks for outpaitent care. Nail Debridement Qualifies If: Qualifiers If:: A patient qualifies for nail debridement if they have: 1 class A finding (Q7) 2 class B findings (Q8) OR 1 class B & 2 class C findings in addition to a primary condition (Q9)
[2021-12-09] MEDS: ACETAMINOPHEN 325 MG TABLET PO (17:58)
[2021-12-09] MEDS: AZITHROMYCIN 500 MG in 0.9 % SODIUM CHLORIDE 250 ml 250 ML 255 MG IVPB (18:23)
[2021-12-09] MEDS: ENOXAPARIN 40 MG/0.4 ML INJ SUBCUT (21:06)
[2021-12-09] MEDS: LORazepam 0.5 MG TABLET PO (23:05)
[2021-12-09] MEDS: 0.9 % SODIUM CHLORIDE 250 ml IV (23:05)
[2021-12-10] VITALS: PULSE 91
[2021-12-10] MEDS: PIPERACILLIN/TAZOBACTAM 3.375 GM in 0.9 % SODIUM CHLORIDE Mini-bag 100 ML IVPB ×3 (00:29→12:09)
[2021-12-10] MEDS: KETOROLAC 30 MG/ML inj IVP ×3 (00:55→12:51)
[2021-12-10] MEDS: SODIUM CHLORIDE 0.9 % (FLUSH) 10 ML SYRINGE 5 ML IVF ×2 (00:56→06:18)
[2021-12-10] MEDS: LORazepam 0.5 MG TABLET PO (01:41)
[2021-12-10 03:00] VITALS: BP 142/79; PULSE 81; RESP 18; TEMP 37; O2SAT 98
[2021-12-10] MEDS: OXYCODONE 5 MG TABLET PO (04:50)
[2021-12-10] MEDS: ACETAMINOPHEN 325 MG TABLET PO (04:51)
--- NOTE | 2021-12-10 05:12 | PC.NURSE ---
[id number]: Patient cooperative with cares. Has increased pain this shift to the L. chest/shoulder/elbow. PRN Toradol x1, Oxy x2, Ativan, and Tylenol x1 administered for relief. Ice offered and accepted. Afebrile. Mepilex to great R. toe C/D/I. Eating and voiding. Denies N/V.
[2021-12-10 07:00] VITALS: BP 113/74; PULSE 75; PULSE 98; RESP 18; RESP 20; TEMP 36.9; O2SAT 99
[2021-12-10 07:07] LABS: Basophils Absolute Auto 0.02 K/uL (0.00-0.30); Basophils Percent Auto 0.2 % (0.0-3.0); Eosinophils Absolute Auto 0.09 K/uL (0.00-0.50); Hematocrit 35.1 % (37.0-53.0); Hemoglobin* 11.5 gm/dL (13.5-17.5); Immature Granulocytes Abs Auto 0.05 K/uL (0.00-0.30); Lymphocytes Percent Auto 15.8 % (20-44); Mean Corpuscular HGB Conc 33 gm/dL (32-36); Mean Corpuscular Hemoglobin 29 pg (26-34); Mean Corpuscular Volume 89 fL (80-100); Monocytes Percent Auto 7.8 % (0.0-11.0); Neutrophils Percent Auto 74.7 % (42.0-72.0); Platelet Count* 468 K/uL (140-440); RDW Coefficient of Variation % 12.5 % (11.5-15.5); Red Blood Count 3.93 m/uL (4.30-5.90); White Blood Count* 9.39 K/uL (4.50-11.00)
[2021-12-10 07:20] LABS: Slide Review Reflex No
[2021-12-10 07:24] LABS: Albumin* 3.2 g/dL (3.3-5.0); Chloride* 100 mmol/L (96-114)
[2021-12-10 07:25] LABS: Potassium* 4.7 mmol/L (3.6-5.1); Sodium* 134 mmol/L (135-149)
[2021-12-10 07:27] LABS: Alkaline Phosphatase* 592 U/L (40-150); Aspartate Amino Transferase* 137 U/L (12-35); Bilirubin Direct* 0.6 mg/dL (0.0-0.5); Bilirubin Total* 0.7 mg/dL (0.1-1.5); Blood Urea Nitrogen* 12 mg/dL (5-24); Carbon Dioxide* 29 mmol/L (20-32); Creatinine* 0.8 mg/dL (0.5-1.5); Est. Creatinine Clearance* 105.78; Estimated Glomerular Filt Rate 111 ml/min; Total Protein* 7.1 g/dL (6.0-8.3)
[2021-12-10 07:28] LABS: Alanine Aminotransferase* 135 U/L (4-50); Calcium* 9.1 mg/dL (8.4-10.6); Glucose* 277 mg/dL (60-115)
[2021-12-10 08:00] VITALS: PULSE 69
[2021-12-10 11:00] VITALS: BP 132/77; PULSE 83; RESP 20; TEMP 36.6; O2SAT 98
--- NOTE | 2021-12-10 14:51 | PC.NURSE ---
Pt up independently in room and serrano. Rates pain up left upper chest/rib fracture 03/24. Toradol per MAY with relief. IV DC'd, cath tip intact. DC instructions given verbally and in writing to pt and spouse. Answered all questions. Prescriptions for Insulin medications and supplies given in writing. Follow up appointment made by spouse for 12/16 @11:00 at [facility]. Pt left with spouse to return home @1430.
--- NOTE | 2021-12-10 16:52 | PM.DS1 ---
DS: Providers Provider Date Seen: 12/10/21 Date of admission: 12/08/21 17:25 Primary care physician: Not a Local Provider Admitting Clinician: Sri Larsen MD Attending Physician on discharge: Sri Larsen MD Date of Discharge: 12/10/21 DS: Diagnosis Discharge Diagnosis (1) Bilateral pneumonia: Status: Acute Problem details: Bilateral. Progression since the when left lower lobe infiltrate was noted by CT. SARS-CoV-2 negative x2. Influenza negative. Not hypoxic. Increasing leukocytosis, electrolyte abnormalities and hyperglycemia. New LFT elevation. Cultures drawn and pending. I am starting Zosyn and azithromycin. Symptomatic support. I suspect that he has coughed and broke that left 4th rib. He is immunocompromised secondary to poorly controlled type 1 diabetes. Clinically improved with no hypoxia, no fever, less coughing. Continue Augmentin for 5 days (2) Type 1 diabetes mellitus, uncontrolled: Status: Acute Problem details: Insulin regimen restarted. Social work to be consulted. A1c 12.1. Patient reports he is unable to afford insulin. He tells me today however that he is able to get his insulin if he is discharged from the hospital. He understands that type 1 diabetes requires insulin treatment. Restart Lantus insulin at 15 units daily and NovoLog at 6 units with each meal. Will need close outpatient followup to determine need for adjusting insulin. (3) Rib fracture: Status: Acute Problem details: Fracture of the left anterior 4th rib probably occurred when he was coughing. Will follow this clinically. Repeat imaging in a couple months if this is not seem to resolve. Small amount of swelling over his anterior chest where he is most tender is probably due to hematoma and apparently some subcutaneous emphysema. Note to be off work for the next week is given. Reassess next week for return to work. 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 Rodarte to follow this relatively shallow non infected ulcer (6) Elevated liver enzymes: Status: Acute Problem details: Cause for this is unclear. Ultrasound of the liver was unremarkable. He is not having symptoms of hepatobiliary disease. He does have a history of fairly heavy alcohol use. I recommend he abstain from alcohol and reduces acetaminophen to no more than 3000 mg per day and recheck liver enzymes next week. DS: Summary Hospital Course Hospital Course: Patient admitted to the hospital with ongoing coughing, left chest pain, poorly controlled diabetes. 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 He had received a Zithromax in the week prior to this admission. Here he was continued on Pipracil and tazobactam. He had clinical improvement with no fever or hypoxia. Cough is improved. He is found to have a left 4th rib fracture with associated hematoma and small subcutaneous emphysema. He was resumed on his insulin and blood sugars improved though I have not yet normalized. Status at Discharge Functional status at discharge: independent ambulation Time Spent with Patient Time attestation: Total time spent providing and/or coordinating discharge services: Time spent: Greater than 30 minutes Specific discharge activities: We discussed at length his need for insulin, blood sugar monitoring, outpatient follow-up of his diabetes as well as abnormal liver tests and rib fracture. Exam Narrative: Exam Narrative: He is alert and appears in no distress. Breathing is unlabored. Cardiovascular: S1, S2, regular rate and rhythm. Respirations are clear to auscultation. Palpation over his chest below his left clavicle over his left breast is quite tender there is subcutaneous swelling there no crepitance. Abdomen is soft without tenderness or mass extremities without edema. Const: Vital Signs, click to edit/add: Vital Signs - 24 hr 12/09/21 19:00 12/09/21 23:00 12/09/21 23:19 Temperature 99.1 F 98.9 F Pulse Rate Pulse Rate [Pulse Oximeter] 99 96 Respiratory Rate 18 20 20 Blood Pressure [Le ft Arm] 123/71 145/79 H Pulse Oximetry 97 97 97 Oxygen Delivery Me thod Room Air Room Air Room Air 12/10/21 00:00 12/10/21 03:00 12/10/21 07:00 Temperature 98.6 F 98.5 F Pulse Rate 91 Pulse Rate [Pulse Oximeter] 81 75 Respiratory Rate 18 18 Blood Pressure [Le ft Arm] 142/79 H 113/74 Pulse Oximetry 98 99 Oxygen Delivery Me thod Room Air Room Air 12/10/21 11:00 12/10/21 07:00 12/10/21 08:00 Temperature 97.9 F Pulse Rate 69 Pulse Rate [Pulse Oximeter] 83 98 Respiratory Rate 20 20 Blood Pressure [Le ft Arm] 132/77 Pulse Oximetry 98 Oxygen Delivery Me thod Room Air Documenting provider has reviewed patient's vital signs: yes DS: Data Data Completed and Pending Labs on day of discharge: Labs from last 24 hours 12/10/21 12/10/21 12/10/21 06:45 06:45 06:45 WBC 9.39 RBC 3.93 L Hgb 11.5 L Hct 35.1 L MCV 89 MCH 29 MCHC 33 RDW Coeff of Severiano 12.5 Plt Count 468 H Neut % (Auto) 74.7 H Lymph % (Auto) 15.8 L Banner % (Auto) 7.8 Eos % (Auto) 1.0 Baso % (Auto) 0.2 Neut # (Auto) 7.00 Lymph # (Auto) 1.50 Banner # (Auto) 0.70 Eos # (Auto) 0.09 Baso # (Auto) 0.02 Abs Immat Gran (auto) 0.05 Sodium 134 L Potassium 4.7 Chloride 100 Carbon Dioxide 29 BUN 12 Creatinine 0.8 Estimated Creat Clear 105.78 Estimated GFR 111 Glucose 277 H Calcium 9.1 Total Bilirubin 0.7 Direct Bilirubin 0.6 H AST 137 H ALT 135 H Alkaline Phosphatase 592 H Total Protein 7.1 Albumin 3.2 L Hepatitis A Total & IgM Pending Hep Bs Antigen Pending Hep B Core IgM Ab Pending Hep C Ab (LATASHA) Pending Hep C Ab Index (LATASHA) Pending Hep C Interp (Acute) Pending Preliminary micro results at discharge 12/08/21 11:20 Blood Culture - Preliminary Blood NO GROWTH AFTER 48 HOURS 12/08/21 10:40 Blood Culture - Preliminary Blood NO GROWTH AFTER 48 HOURS Discharge Plan Discharge Disposition: Home, Self-Care Date of Admission: 12/08/21 17:25 Consulting Providers: Yayo Rodarte Primary Care Provider: Provider,Not a Local Condition: Improved Anticipated Discharge Date/Time: 12/10/21 12:46 Discharge Medications: New insulin aspart U-100 [Novolog Flexpen U-100 Insulin] 100 unit/mL (3 mL) Insulin Pen 6 unit subcut TIDWM Qty: 15 0RF insulin glargine [Lantus Solostar U-100 Insulin] 100 unit/mL (3 mL) insulin pen 15 unit subcut QPM Qty: 15 2RF oxycodone 5 mg capsule 5 mg PO Q6H PRN (Reason: pain) Qty: 20 0RF amoxicillin-pot clavulanate 875-125 mg tablet 1 tab PO BID Qty: 10 0RF Continued melatonin 10 mg capsule 10 mg PO HS PRN Changed acetaminophen [Acetaminophen Extra Strength] 500 mg tablet 1,000 mg PO TID PRNQty: 100 0RF ibuprofen [Advil] 200 mg tablet 600 mg PO Q6H PRNQty: 100 0RF Discharge Orders: Discharge Order (Routine); Ordered 12/10/21 Ordered By: Satya Liao Patient Education: Amoxicillin/Clavulanate Potassium (By mouth), Oxycodone, Rapid Release (By mouth), Insulin Aspart Protamine/Insulin Aspart (By injection), Insulin Glargine (By injection) (Lantus, Lantus SoloStar, Toujeo, Semglee), Pneumonia (DC) Activity Restrictions/Additional Instructions: We have identified a number of health problems and concerns during this hospital stay. 1) bilateral pneumonia or pneumonitis. This appears to be better. Continue 5 more days of antibiotics. Return to the emergency department if worsening cough, fever or trouble breathing. 2)abnormal liver tests. The cause of your abnormal liver tests is uncertain. I recommend you stop drinking all alcohol and take no more than 1000 mg of acetaminophen up to 3 times a day for a total maximum dose of 3000 mg a day. Get your liver tests checked next week. If not improving you will need to have more tests and possibly see a liver specialist. 3) left 4th rib fracture. This will likely heal over the next 1-2 months. You have a note to be off work for the next week. 4) abnormal blood sugars due to poorly controlled blood sugar. Resume insulin as prescribed. Monitor blood sugars at home. See your doctor next week to review management of your diabetes. Activity Level: Activity as Tolerated Discharge Diet: Diabetic Follow Up Appointments: Provider,Not a Local [Primary Care Provider] - 12/16/21 11:00 am (Follow-up at [facility] as already scheduled.) Forms: [employer] Info Instructions
[2021-12-11 14:17] LABS: Hepatitis B Core Antibody, IgM Negative (Negative); Hepatitis B Surface Antigen Negative (Negative); Hepatitis C Antibody by CIA Negative (Negative)
== END 2021-12-10 14:30 | disposition home or self-care (01) | DRG 194 ==
LOC: ED 14:37 → MEDSURG 14:41
PROVIDERS: Hospitalist; Admitting Provider Family Medicine; Emergency Provider Family Medicine; Visit Provider Family Medicine
DX: J18.9 Pneumonia, unspecified organism (principal); S22.32XA Fracture of one rib, left side, initial encounter for closed fracture; E87.1 Hypo-osmolality and hyponatremia; E10.621 Type 1 diabetes mellitus with foot ulcer; L97.512 Non-pressure chronic ulcer of other part of right foot with fat layer exposed; E10.65 Type 1 diabetes mellitus with hyperglycemia; Z85.72 Personal history of non-Hodgkin lymphomas; F17.220 Nicotine dependence, chewing tobacco, uncomplicated; E87.5 Hyperkalemia; S32.10XD Unspecified fracture of sacrum, subsequent encounter for fracture with routine healing; R74.01 Elevation of levels of liver transaminase levels
CPT/HCPCS: 36415; 36600; 71260; 73660; 74176; 76705; 80048; 80053; 80074; 80076; 81001; 82330; 82803; 82962; 82977; 83036; 83540; 83550; 83605; 83735; 83880; 84145; 84443; 84484; 85025; 85379; 86140; 87040; 87635; 93005; 99285; A9270; C9113; J0456; J0696; J1650; J1885; J2543; J7030; J7050; J7120; Q9967

== ENCOUNTER 2021-12-16 11:35 | Outpatient (CLI) | payer OTHER, SELFPAY ==
[2021-12-16 22:10] LABS: Albumin* 4.2 g/dL (3.3-5.0); Chloride* 97 mmol/L (96-114); Potassium* 5.5 mmol/L (3.6-5.1); Sodium* 136 mmol/L (135-149)
[2021-12-16 22:13] LABS: Alanine Aminotransferase* 55 U/L (4-50); Alkaline Phosphatase* 516 U/L (40-150); Aspartate Amino Transferase* 40 U/L (12-35); Bilirubin Total* 0.4 mg/dL (0.1-1.5); Blood Urea Nitrogen* 17 mg/dL (5-24); Calcium* 9.7 mg/dL (8.4-10.6); Carbon Dioxide* 28 mmol/L (20-32); Creatinine* 0.7 mg/dL (0.5-1.5); Estimated Glomerular Filt Rate 116 ml/min; Total Protein* 8.5 g/dL (6.0-8.3)
[2021-12-16 22:44] LABS: Glucose* 352 mg/dL (60-115)
--- NOTE | 2021-12-17 09:27 | ONC.NURNOTE ---
Addendum entered by Li Huang, RN 12/19/21 13:29: Visual Design Lead was able to talk with patient, that request was made to have primary care work him up prior to us seeing him. He has an appointmen 12/29. Nursing to look at results and see if need to see oncologist is required. Original Note: Oncology referral was received yesterday for patient stating Burkitt's Lymphoma. Nursing unable to find documentation of current disease, so contacted primary care office. Patient has history of Burkitt's Lymphoma back in 2003. Was treated at [facility]. Patient had fractured rib with cough, and provider looking for lymphoma vs. osteoporosis per nursing in their office. Informed primary care office that patient would need to be worked up first, and if found to have lyphoma we would be happy to see patient. Nursing to talk with primary care when she is back in office. Unable to reach patient via phone number on consult sent to update him.
== END 2021-12-16 11:36 | disposition home or self-care (01) ==
LOC: FRMREF 11:37
PROVIDERS: Visit Provider Family Medicine
DX: R74.8 Abnormal levels of other serum enzymes (principal); E78.5 Hyperlipidemia, unspecified; E11.628 Type 2 diabetes mellitus with other skin complications; L08.9 Local infection of the skin and subcutaneous tissue, unspecified
CPT/HCPCS: 80053

== ENCOUNTER 2021-12-29 13:32 | Outpatient (CLI) | payer OTHER, SELFPAY ==
[2021-12-29 22:10] LABS: Albumin* 4.8 g/dL (3.3-5.0)
[2021-12-29 22:11] LABS: Chloride* 98 mmol/L (96-114); Potassium* 5.3 mmol/L (3.6-5.1); Sodium* 134 mmol/L (135-149)
[2021-12-29 22:13] LABS: Aspartate Amino Transferase* 37 U/L (12-35); Bilirubin Total* 0.7 mg/dL (0.1-1.5); Blood Urea Nitrogen* 17 mg/dL (5-24); Carbon Dioxide* 24 mmol/L (20-32); Cholesterol* 180 mg/dL (90-199); Creatinine* 0.7 mg/dL (0.5-1.5); Estimated Glomerular Filt Rate 116 ml/min; Total Protein* 8.7 g/dL (6.0-8.3)
[2021-12-29 22:14] LABS: Alanine Aminotransferase* 40 U/L (4-50); Alkaline Phosphatase* 303 U/L (40-150); Calcium* 10.2 mg/dL (8.4-10.6); Glucose* 318 mg/dL (60-115); HDL Cholesterol* 54 mg/dL (>=40); LDL Cholesterol Calculated 94 mg/dL (<100); Triglycerides* 160 mg/dL (40-149)
== END 2021-12-29 13:33 | disposition home or self-care (01) ==
PROVIDERS: Visit Provider Family Medicine
DX: R74.8 Abnormal levels of other serum enzymes (principal); E10.9 Type 1 diabetes mellitus without complications; Z13.6 Encounter for screening for cardiovascular disorders; F41.9 Anxiety disorder, unspecified
CPT/HCPCS: 80053; 80061

== ENCOUNTER 2022-01-05 08:51 | Outpatient (CLI) | payer OTHER, SELFPAY ==
--- NOTE | 2022-01-05 09:00 | CRLHL7_ITS ---
For Patients: As a result of the Century Cures Act, medical imaging exams and procedure reports are released immediately into your electronic medical record. You may view this report before your referring provider. If you have questions, please contact your health care provider. Indication: PERSISTENT CHEST PAIN WITH SOFT TISSUE SWELLING OVER FX ON LEFT SIDE HX LYMPHOMA Technique: Post contrast CT chest. 75 cc Isovue 370 intravenous contrast. Please note that all CT scans at this facility use dose modulation, iterative reconstruction, and/or weight-based dosing when appropriate to reduce radiation dose to as low as reasonably achievable. Comparison: 12/08/2021 Findings: There is a circumscribed fluid collection deep to the left pectoralis muscle measuring 6.1 x 1.5 x 2.8 cm (transverse, AP, cc). A few air bubbles are present within this fluid collection. Mild enhancement of the wall identified. There is a mildly displaced fracture deformity of the adjacent anterior 4th rib. Mild adjacent extrapleural thickening also present with mild thickening of the interlobular septa within the anterior left upper lobe. No pneumothorax. No pleural effusion. No enlarged lymph nodes. Bilateral gynecomastia. Upper abdomen unremarkable. Postop changes to the right shoulder. No vertebral body compression fracture. Impression: Left subpectoral abscess measuring 6.1 x 1.5 x 2.8 cm. Mild adjacent extrapleural thickening and thickening of the interlobular septa within the anterior left upper lobe. Surgical consultation is recommended for further evaluation regarding possible open incision and drainage versus percutaneous drainage. Please note that all CT scans at this facility use dose modulation, iterative reconstruction, and/or weight-based dosing when appropriate to reduce radiation dose to as low as reasonably achievable. Dictated by oJse Philip MD @ 01/05/2022 11:05:10 AM (Electronically Signed)
[2022-01-05 09:24] LABS: Creatinine* 0.8 mg/dL (0.5-1.5); Estimated Glomerular Filt Rate 111 ml/min
== END 2022-01-05 08:52 | disposition home or self-care (01) ==
LOC: CT 08:52
PROVIDERS: PCP Family Medicine; Visit Provider Family Medicine
DX: R07.89 Other chest pain (principal); S22.39XA Fracture of one rib, unspecified side, initial encounter for closed fracture
CPT/HCPCS: 36415; 71260; 82565; Q9967

== ENCOUNTER 2022-01-30 07:43 | Outpatient (CLI) | payer OTHER, SELFPAY ==
--- NOTE | 2022-01-30 09:20 | W.ANESCHARGE ---
Anesthesia Charges Start Date/Time Anesthesia Start Date: 01/30/22 Anesthesia Start Time: 08:48 Stop Date/Time Anesthesia Stop Date: 01/30/22 Anesthesia Stop Time: 09:16 Summary Emergency: No
--- NOTE | 2022-01-30 09:45 | W.ANESCHARGE ---
Anesthesia Charges Start Date/Time Anesthesia Start Date: 01/30/22 Anesthesia Start Time: 08:48 Stop Date/Time Anesthesia Stop Date: 01/30/22 Anesthesia Stop Time: 09:16 Summary Emergency: No
== END 2022-01-30 07:44 | disposition home or self-care (01) ==
PROVIDERS: PCP Family Medicine; Visit Provider Internal Medicine
DX: Z12.11 Encounter for screening for malignant neoplasm of colon (principal)
CPT/HCPCS: 00811; 00812; 45378; J2704

== ENCOUNTER 2023-01-26 17:18 | Emergency (ER) | payer OTHER, SELFPAY ==
[2023-01-26 17:27] VITALS: BP 177/88; PULSE 99; RESP 20; TEMP 37.1; O2SAT 100; BMI 19.3
--- NOTE | 2023-01-26 18:10 | CRLHL7_ITS ---
For Patients: As a result of the Cures Act, medical imaging exams and procedure reports are released immediately into your electronic medical record. You may view this report before your referring provider. If you have questions, please contact your health care provider. INDICATION: Facial trauma. Left cheek swelling. TECHNIQUE: CT of the face without contrast. Coronal reconstructions are included. COMPARISON: Facial bone radiographs from 01/12/2023. FINDINGS: No acute fracture of the maxillofacial bones. There is marked left facial soft tissue swelling/edema most prominent overlying the left maxillary bone. Subjacent to the soft tissue swelling there is a partially subluxed molar tooth with protrusion of the portion of the tooth root from the alveolus. No organized fluid collection. The orbital contents are normal in appearance. There is no evidence for penetrating injury to the ocular globes. The lenses are situated in their normally expected anterior locations. No radiodense or metallic foreign body is demonstrated. Mild ethmoid and maxillary sinus mucosal thickening. Right maxillary sinus air-fluid level. Trace secretions left sphenoid sinus. Mild rightward nasal septal deviation and septal spur. Numerous dental caries are present. The visualized portions of the brain are normal in appearance. IMPRESSION: 1. Marked left facial soft tissue swelling/edema overlying the left maxillary bone, with likely associated partially subluxed left maxillary molar tooth. Findings may represent sequela of trauma although a superimposed cellulitic infection is not excluded. No organized fluid collection. Please note that all CT scans at this facility use dose modulation, iterative reconstruction, and/or weight-based dosing when appropriate to reduce radiation dose to as low as reasonably achievable. Dictated by Humberto Stinson MD @ 01/28/2023 6:41:36 AM (Electronically Signed)
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
[2023-01-26 19:59] VITALS: BP 158/78; PULSE 94; RESP 16; O2SAT 98
== END 2023-01-26 20:56 | disposition home or self-care (01) ==
PROVIDERS: Emergency Provider Student in an Organized Health Care Education/Training Program; PCP Family Medicine
DX: S09.93XA Unspecified injury of face, initial encounter (principal); W50.0XXA Accidental hit or strike by another person, initial encounter
CPT/HCPCS: 70486; 99283; 99284

== ENCOUNTER 2023-02-01 10:31 | Emergency (ER) | payer OTHER, SELFPAY ==
[2023-02-01 10:36] VITALS: BP 146/82; PULSE 106; RESP 18; TEMP 36.7; O2SAT 99; BMI 19.3
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
[2023-02-01 11:40] LABS: Lactate* 1.1 mmol/L (0.5-1.9)
[2023-02-01 11:44] LABS: Basophils Absolute Auto 0.02 K/uL (0.00-0.30); Basophils Percent Auto 0.2 % (0.0-3.0); Eosinophils Absolute Auto 0.02 K/uL (0.00-0.50); Eosinophils Percent Auto 0.2 % (0.0-7.0); Hematocrit 39.9 % (37.0-53.0); Hemoglobin* 13.1 gm/dL (13.5-17.5); Immature Granulocytes Abs Auto 0.01 K/uL (0.00-0.30); Immature Granulocytes Pct Auto 0.1 %; Lymphocytes Percent Auto 10.9 % (20-44); Mean Corpuscular HGB Conc 33 gm/dL (32-36); Mean Corpuscular Hemoglobin 29 pg (26-34); Mean Corpuscular Volume 87 fL (80-100); Monocytes Percent Auto 5.1 % (0.0-11.0); Neutrophils Percent Auto 83.5 % (42.0-72.0); Platelet Count* 393 K/uL (140-440); RDW Coefficient of Variation % 11.4 % (11.5-15.5); Red Blood Count 4.58 m/uL (4.30-5.90); White Blood Count* 9.89 K/uL (4.50-11.00)
[2023-02-01 11:47] LABS: Slide Review Reflex No
[2023-02-01 11:56] LABS: Chloride* 97 mmol/L (96-114)
[2023-02-01 11:57] LABS: Sodium* 135 mmol/L (135-149)
[2023-02-01 11:59] LABS: Est. Creatinine Clearance* 88.83; Estimated Glomerular Filt Rate 94 ml/min
[2023-02-01 12:00] LABS: Anion Gap 14 mEq/L (7-15); Blood Urea Nitrogen* 15 mg/dL (5-24); Calcium* 9.3 mg/dL (8.4-10.6); Carbon Dioxide* 24 mmol/L (20-32)
[2023-02-01 12:01] VITALS: BP 144/82; PULSE 93; RESP 20; O2SAT 99
[2023-02-01 12:03] LABS: C Reactive Protein* 8.3 mg/dL (0.5-1.0)
[2023-02-01] MEDS: cefTRIAXone 1 GM in 0.9 % SODIUM CHLORIDE Mini-bag 100 ML IVPB (12:03)
[2023-02-01 12:13] LABS: Glucose* 375 mg/dL (60-115)
[2023-02-01] MEDS: BUPIVACAINE 0.25% 30 ML 10 ML INJECTION (12:34)
[2023-02-01 14:00] VITALS: BP 135/76; PULSE 86; RESP 18; O2SAT 99
--- NOTE | 2023-02-01 14:03 | ED.NURSE ---
Per MD Bland, leave pt left 20g AC IV in place- verified by MD. Pt is instructed to go straight to [facility] with IV in place. Pt is in understanding and dental/ surgery center have accepted to see pt for surgery today . Pt has no further questions/ concerns with plan of care.
== END 2023-02-01 14:02 | disposition home or self-care (01) ==
PROVIDERS: Emergency Provider Family Medicine; PCP Family Medicine
DX: L02.01 Cutaneous abscess of face (principal); K03.2 Erosion of teeth
CPT/HCPCS: 36415; 80048; 83605; 85025; 86140; 87040; 87070; 96365; 99284; J0665; J0696

== ENCOUNTER 2024-03-09 07:20 | Outpatient (CLI) | payer OTHER, SELFPAY | END 2024-03-09 07:21 | disposition home or self-care (01) | PROVIDERS: PCP Family Medicine; Visit Provider Family Medicine | DX: E10.9 Type 1 diabetes mellitus without complications (principal); E78.5 Hyperlipidemia, unspecified; R74.8 Abnormal levels of other serum enzymes | CPT/HCPCS: 80053; 80061; 82043; 82570; 86140 ==

== ENCOUNTER 2024-08-25 09:37 | Outpatient (CLI) | payer OTHER, SELFPAY | END 2024-08-25 09:38 | disposition home or self-care (01) | LOC: FRMREF 09:38 | PROVIDERS: PCP Family Medicine; Visit Provider Family Medicine | DX: E78.5 Hyperlipidemia, unspecified (principal); E10.9 Type 1 diabetes mellitus without complications; Z79.4 Long term (current) use of insulin; Z12.5 Encounter for screening for malignant neoplasm of prostate | CPT/HCPCS: 80053; 80061; 82043; 82570; G0103 ==